=== PATIENT | male | born 1980 | race Caucasian/White ===

== ENCOUNTER 2024-09-22 09:07 | Emergency (ER) | payer OTHER, SELFPAY ==
--- NOTE | ~2024-09-22 | XR_ITS ---
HISTORY: R. foot injury with bruising COMPARISON: None TECHNIQUE: 3 views of the right were performed. FINDINGS: No acute fracture or dislocation is appreciated. No significant degenerative disease is noted. The base of the fifth metatarsal is intact. No calcaneal spur is noted. No significant soft tissue swelling is present. IMPRESSION: No acute fracture or dislocation, as detailed above. Reviewed, dictated and finalized at location A.
[2024-09-22 09:18] VITALS: BP 124/82; PULSE 85; RESP 18; TEMP 36.8; O2SAT 100
[2024-09-22 09:56] VITALS: BP 127/75; PULSE 69; RESP 16; TEMP 36.6; O2SAT 97
--- OUTSIDE RECORDS SUMMARY | 2024-09-22 10:23 | XMS_ITS | Encounter Summary ---
Author Organization 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
--- OUTSIDE RECORDS SUMMARY | 2024-09-22 10:23 | XMS_ITS | Continuity of Care Document ---
Author Name [facility] Organization [facility] Care Team Providers Care Investigator Vice Name Role Phone [facility] Unavailable Unavailable Problems Combined list of problems from Department of Defense and Veterans Affairs facilities. It does not include entries that were removed or entered in error. Problem Status Onset Date Problem Type Date of Resolution Comments Source Hyperlipidemia Active 05/28/20 24 Diagnosis [facility] Folliculitis Active 04/30/20 24 Diagnosis 5C-375 [facility] Obstructive sleep apnea syndrome2 Active 06/07/20 23 Condition Outside Source Comment: Last Assessment & Plan: The patient continues to benefit from the auto titrating CPAP unit with an auto titrating range of 6-10 cm water pressure for ongoing symptoms of MYESHA. His DME supplier is [employer]. Phone # . He will follow up here annually. -[facility] Gastroesophageal reflux disease without esophagitis Active 04/13/20 16 Condition [facility]th [facility] Adult atopic eczema Active Condition [facility] Bilateral plantar fasciitis Active Condition [facility] Cervical radiculopathy Active Condition [facility] Chronic post-traumatic stress disorder following combat Active Condition [facility] Difficulty hearing Active Condition [facility] Exposure to potentially hazardous substance ([facility] [id number]) Active Condition Sep 18 5 Entered By: SIMEON SPRINGER Comment: Entered automatically through JACE Problem List documentation program ATILIO MILLER [facility] Family history of cancer of colon Active Condition [facility] Family history: Myocardial infarction at less than 60 Active Condition [facility] Gastroesophageal reflux disease without esophagitis Active Condition . [facility] Hyperlipidemia Active Condition . [facility] Hypogonadism Active Condition [facility] Low back pain Active Condition . [facility] Obstructive sleep apnea Active Condition . [facility] Primary hypertension Active Condition [facility] Tinnitus Active Condition . [facility] Allergic rhinitis Active Condition 0055 C[facility] Anxiety disorder, unspecified Active Condition 0055C-[facility]th [facility] Calcaneal spur of right foot Active Condition 0055C[facility] Carotid artery stenosis Active Condition 0055C[facility] Cervical spondylosis Active Condition 0055A-[facility]th [facility] Cervicalgia Active Condition 0055C-[facility] Coronary artery stenosis Active Condition 0055C[facility] Decreased hearing Active Condition 0055 C[facility] Degenerative disc disease Active Condition 00[facility] Erectile dysfunction Active Condition 00[facility] Essential hypertension Active Condition 00[facility] Headache associated with sexual activity1 Active Condition Outside Source Comment: No evidence of migraine component. also pt just quit tobacco and that may contribute. check MRI and Lyme for completeness. w labs for PHA including lipids as pt tends to run high 5C-[facility] Lumbar spondylosis Active Condition 005 5A-[facility]th [facility] Mild recurrent major depression Active Condition 0055C-37 5th [facility] Major depressive disorder, recurrent, mild Active Condition 0055C-375 th [facility] Pain in right wrist Active Condition 00 55C-[facility] Plantar fasciitis of both feet Active Condition 00[facility] Post-traumatic stress disorder, unspecified Active Condition [facility] Vesicular eczema Active Condition 0055C -[facility] Diagnosis: ICD-10-CM F43.23 Adjustment disorder with mixed anxiety and depressed mood Active Diagnosis [facility] Diagnosis: ICD-10-CM Z71.89 Other specified counseling Active Diagnosis [facility] Diagnosis: ICD-10-CM G47.33 Obstructive sleep apnea (adult) (pediatric) Active Diagnosis [facility] Diagnosis: ICD-10-CM Z00.01 Encounter for general adult medical exam w abnormal findings Active Diagnosis [facility] Medications Combined list of outpatient medications from Department of Defense and Veterans Affairs facilities.Medications provided include 1) outpatient medications from the last 15 months, and 2) patient-reported medications. Medication Details Route Status Patient Instructions Prescription Expires Prescription Number Last Dispense Date Ordering Provider Order Date Order Qty Source ALBUTEROL SO4 90MCG/ACTUA T (CFC-F) INHL,ORAL,8 .5GM INHALE 1 PUFF BY ORAL INHALATI ON FOUR TIMES A DAY NEEDED SHAKE WELL. RINSE MOUTHPIE CE FREQUENT LY TO PREVENT CLOGGING . RESPIR ATORY (INHAL ATION) ACTIVE 09/17/2025 [id number] 5 RA AUDREY WHITTEN 2024 2 [facility] amoxicillin 500 mg oral capsule 2 cap(s), Oral, TID, X 5 days, # 30 cap(s), 0 total refill(s ), Acute, 10/31/23 8:23:00 AM CDT, Pharmacy : [facility] , Respirat ory, other Oral (given by mouth) Complet ed 10/31/2023 4 2023 30.0 0055C-3 [facility] [place] amoxicillin -clavulanat e 875 mg-125 mg oral tablet 20 EA, 0 Refill(s ), TAKE 1 TABLET BY MOUTH TWICE DAILY FOR 10 DAYS, 0 total refill(s ), Soft Stop Complet ed 10/26/20232023 0055C-3 75th [facility] [place] aspirin 81 mg oral tablet, chewable 1 tab(s), Oral, Daily, # 90 tab(s), 3 total refill(s ), Garth mnjulita, Pharmacy : [facility] Oral (given by mouth) Ordered 5 2023 90.0 0055C-3 75th [facility] [place] ASPIRIN 81MG TAB,CHEWABL E CHEW AND SWALLOW ONE TABLET BY MOUTH ONCE A DAY FOR CARDIOVA SCULAR DISEASE (TAKE WITH FOOD) ORAL ACTIVE 09/17/2025 [id number] 5 RA AUDREY WHITTEN 2024 90 [facility] azithromyci n 250 mg oral tablet See instruct ions, Take 2 tablets by mouth today then 1 tablet by mouth daily for 4 days., # 6 tab(s), 0 total refill(s ), Acute, 10/31/23 12:00:00 AM CDT, Pharmacy : [facility] , Respirat ory, other Complet ed 10/31/2023 4 2023 6.0 0055C-3 75th [facility] buPROPion 150 mg/24 hours (XL) oral tablet, extended release 1 tab(s), Oral, every 24 hr, Take with Lexapro 20mg for Anxiety, # 90 tab(s), 3 total refill(s ), Maintena [facility], Pharmacy : [facility] Oral (given by mouth) Discont inued 10/26/2023 3 2023 90.0 0055C-3 75th [facility] CHOLECALCIF JAIRO 50MCG (2,000UNIT) TAB TAKE ONE TABLET BY MOUTH ONCE A DAY ORAL ACTIVE 09/18/2025 [id number] 5 RA AUDREY WHITTEN 2024 100 [facility] clobetasol 0.05% topical cream 1 appl(s), Topical, BID, # 30 g, 1 total refill(s ), [facility], Pharmacy : [facility] Topica l (on the skin) Ordered 4 2023 30.0 0055C-3 75th [facility] CLOBETASOL PROPIONATE 0.05% OINT,TOP APPLY SPARINGL Y TO AFFECTED AREA(S) TWICE A DAY FOR ATOPIC DERMATIT IS (EXTERNA L USE ONLY) TOPICA L ACTIVE 09/17/2025 [id number] 5 RA AUDREY WHITTEN 2024 60 [facility] Pito Crestor 20 mg oral tablet 1 tab(s), Oral, Daily, for choleste rol, # 90 tab(s), 3 total refill(s ), Maintena mne, Pharmacy : [facility] Oral (given by mouth) Discont inued 04/16/2024 4 2023 90.0 0055C-3 75th [facility] Crestor 40 mg oral tablet 1 tab(s), Oral, Daily, for choleste rol, # 90 tab(s), 3 total refill(s ), Maintena nce, Patient lost prescrip tion. Please re-presc cuco. Thank you!, Pharmacy : [facility] Oral (given by mouth) Ordered 5 2023 90.0 0055C-3 75th [facility] [place] Crestor 40 mg oral tablet 1 tab(s), Oral, Daily, for choleste rol, # 90 tab(s), 3 total refill(s ), Maintena nce, Pharmacy : [facility] Oral (given by mouth) Discont inued 05/28/2024 4 2023 90.0 0055C-[address] [place] [address] [place] diclofenac 1% topical gel See instruct ions, Apply 2 grams (upper extremit ies) or 4 grams (lower extremit ies) to affected area topicall y four times daily as needed for pain. Max total body dose of 32 grams per day, # 100 g, 0 total refill(s ), Maintena nce, Pharmacy : [facility] Complet ed 02/01/2024 3 2023 100.0 0055C-[address] [place] [address] escitalopra m 20 mg oral tablet 1 tab(s), Oral, Daily, # 90 tab(s), 3 total refill(s ), Acute, Pharmacy : [facility] Oral (given by mouth) Ordered 10/05/2024 4 2023 90.0 0055C-[address] [place] [address] [place] escitalopra m 20 mg oral tablet 90 tab(s), 0 Refill(s ), 0 total refill(s ), Soft Stop Discont inued 09/29/20232023 0055C-3 75th [facility] escitalopra m 20 mg tablet See dose instruct ions in comments , # 90 EA, 3 total refill(s ), Acute Discont inued 10/06/2023 3 2023 90.0 Ambulat ory Pharmac y ESCITALOPRA M OXALATE 20MG TAB TAKE ONE TABLET BY MOUTH ONCE A DAY ORAL ACTIVE 09/17/2025 [id number] 5 RA AUDREY WHITTEN 2024 90 [facility] fexofenadin e 180 mg oral tablet TAKE ONE TABLET BY MOUTH EVERY DAY, # 90 EA, 2 total refill(s ), Acute Discont inued 12/06/2022 2 2022 90.0 Ambulat ory Pharmac y fexofenadin e 180 mg tablet See dose instruct ions in comments , # 90 EA, 3 total refill(s ), Acute Discont inued 12/28/2022 3 2022 90.0 Ambulat ory Pharmac y lisinopril 10 mg oral tablet 1 tab(s), Oral, Daily, 90 tab(s), 0 Refill(s ), # 90 tab(s), 3 total refill(s ), Garth [facility], Pharmacy : [facility] Oral (given by mouth) Ordered 4 2023 90.0 0055C-3 75th [facility] lisinopril 10 mg oral tablet 90 tab(s), 0 Refill(s ), 0 total refill(s ), Soft Stop Discont inued 10/06/20232023 0055C-3 75th [facility] lisinopril 10 mg oral tablet TAKE ONE TABLET DAILY BY MOUTH, # 90 EA, 2 total refill(s ), Acute Discont inued 12/06/2022 3 2022 90.0 Ambulat ory Pharmac y lisinopril 10 mg tablet See Instruct ions, # 90 EA, 3 total refill(s ), Acute Complet ed 09/25/2023 4 2023 90.0 Ambulat ory Pharmac y LISINOPRIL 20MG TAB TAKE ONE-HALF TABLET BY MOUTH ONCE A DAY FOR HIGH BLOOD PRESSURE ORAL ACTIVE 09/17/2025 [id number] 5 RA AUDREY WHITTEN 2024 45 [facility] Pito loratadine 10 mg oral tablet 1 tab(s), Oral, Daily, PRN allergy symptoms , # 90 tab(s), 3 total refill(s ), [facility], Pharmacy : [facility] Oral (given by mouth) Discont inued 11/28/2023 4 2023 90.0 0055C-3 [facility] loratadine 10 mg oral tablet 1 tab(s), Oral, Daily, PRN allergy symptoms , # 90 tab(s), 3 total refill(s ), [facility], Pharmacy : [facility] Oral (given by mouth) Ordered 5 2023 90.0 0055C-3 75th [facility] [place] LORATADINE 10MG TAB TAKE ONE TABLET BY MOUTH ONCE A DAY FOR ALLERGIC RHINITIS ON EMPTY STOMACH ORAL ACTIVE 09/17/2025 [id number] 5 RA AUDREY WHITTEN 2024 90 [facility] mupirocin 2% topical ointment 15 g, 0 Refill(s ), APPLY GRAM TOPICALL Y TO THE AFFECTED AREA THREE TIMES DAILY FOR 7 DAYS, 0 total refill(s ), Soft Stop Discont inued 10/26/20232023 0055C-3 75th [facility] mupirocin 2% topical ointment 1 appl(s), Topical, TID, # 22 g, 0 total refill(s ), Acute, Pharmacy : [facility] Topica l (on the skin) Complet ed 05/08/2024 4 2023 22.0 0055C-[address] [place] [address] [place] naproxen 500 mg oral tablet naproxen 500 mg oral tablet Start Date: 06/09/20 Stop Date: 12/06/22 Status: Disconti govind Repeat number: 1 Discont inued 12/06/20222022 No Facilit y Access pantoprazol e 40 mg oral delayed release tablet 1 tab(s), Oral, Daily, # 90 tab(s), 3 total refill(s ), [facility], Pharmacy : [facility] Oral (given by mouth) Discont inued 12/06/2022 3 2022 90.0 0326C-8 [employer] pantoprazol e 40 mg oral delayed release tablet 90 tab(s), 0 Refill(s ), 0 total refill(s ), Soft Stop Cancele d 11/28/20232023 0055C[facility]3 [facility] pantoprazol e EC 40 mg tablet See dose instruct ions in comments , # 90 EA, 3 total refill(s ), Acute Complet ed 09/26/2023 3 2023 90.0 Ambulat ory Pharmac y PANTOPRAZOL E NA 40MG TAB,EC TAKE ONE TABLET BY MOUTH EVERY MORNING BEFORE A MEAL TAKE 30 MINUTES BEFORE MEAL(S) ORAL ACTIVE 09/17/2025 [id number] 5 RA AUDREY WHITTEN [address] [place] [address] [facility] Protonix 40 mg oral delayed release tablet 1 tab(s), Oral, Daily, Book appointm ent for renewal, # 90 tab(s), 0 total refill(s ), Hard Stop, Pharmacy : [facility] Oral (given by mouth) Complet ed 02/29/2024 4 2023 90.0 0055C-3 [facility] Protonix 40 mg oral delayed release tablet 1 tab(s), Oral, Daily, # 90 tab(s), 3 total refill(s ), Maintena nce, Pharmacy : [facility] Oral (given by mouth) Ordered 5 2023 90.0 0055C-[address] [place] [address] [place] ROSUVASTATI N CA 40MG TAB TAKE ONE TABLET BY MOUTH EVERY EVENING FOR HIGH CHOLESTE ROL ORAL ACTIVE 09/17/2025 [id number] 5 RA AUDREY WHITTEN [address] [place] [address] DIVISIO N zolpidem 10 mg oral tablet zolpidem 10 mg oral tablet Start Date: 10/21/20 Stop Date: 12/06/22 Status: Yari faust Repeat number: 1 Discont inued 12/06/20222022 No Facilit y Access Allergies, Adverse Reactions, Alerts Combined list of allergies from Department of Defense and Veterans Affairs facilities. It does not include entries that were removed or entered in error. Substance Category Reaction Severity Reaction type Status Date Reported Comments Source Pet Dander Allergy to substance Rash Mild Active [facility] Immun[facility] Combined list of available immunizations from the Department of Defense and Veterans Affairs facilities. 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 Systems Technology Instructor Status Comments Source influenza virus vaccine, inactivated 2022 ISIDRORTORRES LUDWIG Shoul mallory, left (delt oid) [id number] 150 [employer] complet ed influenza virus vaccine, inactivat ed 05/29/23 Given 5C-3 75th [facility] [place] INFLUENZA, UNSPECIFIED FORMULATION 2022 88 complet ed [facility] influenza, injectable, quadrivalent- pf 2021 [facility] [id number] 150 complet ed Result Comment: Route: Unknown Manufactu rer: SmithKlin e (SKB) 5C-[address] [place] [address] [place] typhoid Vi capsular polysaccharid e vac 2021 [facility] TT [id number] 101 complet ed Result Comment: Route: Unknown Manufactu rer: Sanofi Pasteur (PMC) 5C-[address] [place] [address] [place] COVID-19 (PFIZER), MRNA, LNP-S, PF, 30 MCG/0.3 ML DOSE 1 2021 208 complet ed [facility] COVID Vaccine Pfizer 2021 [facility] TT [id number] 208 complet ed Result Comment: Route: Unknown Manufactu rer: Pfizer, Inc (PFR) 5C-[address] [place] [address] [place] anthrax vaccine 2021 [facility] [id number] 24 complet ed Result Comment: Route: Unknown Manufactu rer: Emergent BioDefens e [employer] s [place] (MIP) 5C-[address] [place] [address] [place] tuberculin purified protein derivative 2020 [facility] TT [id number] 96 complet ed Result Comment: Route: Unknown Manufactu rer: OTH (PMC) 5C-[address] [place] [address] [place] influenza, injectable, quadrivalent 2020 [facility] TT [id number] 158 complet ed Result Comment: Route: Unknown Manufactu rer: Seqirus (SEQ) 0055C-3 [facility]th [facility] [place] COVID Vaccine Moderna 2020 [id number] 207 complet ed COVID Vaccine Moderna 08/20/20 Given [facility] COVID Vaccine Moderna 2020 [id number] 207 complet ed COVID Vaccine Moderna 07/23/20 Given [facility] anthrax vaccine 2019 [id number] 24 Emergent Bios[employer] complet ed anthrax vaccine 05/21/20 Given [facility] Barbadian Encephalitis IM 2019 [id number] 134 Valneva complet ed Barbadian Encephali tis IM 04/22/20 Given [facility] influenza, injectable, quadrivalent- pf 2019 [id number] 150 Se[employer]irus complet ed influenza , injectabl e, quadrival ent-pf 04/08/20 Given [facility] rabies vaccine, purified chick embryo 2019 [id number] 176 GlaxoSmithKli ne complet ed rabies vaccine, purified chick embryo 08/29/19 Given [facility] rabies vaccine, purified chick embryo 2019 [id number] 176 GlaxoSmithKli ne complet ed rabies vaccine, purified chick embryo 08/14/19 Given [facility] rabies vaccine, purified chick embryo 2019 [id number] 176 GlaxoSmithKli ne complet ed rabies vaccine, purified chick embryo 08/07/19 Given [facility] typhoid Vi capsular polysaccharid e vac 2018 [id number] 101 sanofi pasteur complet ed typhoid Vi capsular polysacch aride vac 06/11/19 Given [facility] Barbadian Encephalitis IM 2018 [id number] 134 Valneva complet ed [place] Encephali tis IM 05/08/19 Given [facility] anthrax vaccine 2018 [id number] 24 Emergent [employer] complet ed anthrax vaccine 05/08/19 Given [facility] Barbadian Encephalitis IM 2018 [id number] 134 Valneva complet ed Barb[place] Encephali tis IM 03/20/19 Given [facility] influenza, injectable, quadrivalent- pf 2018 [id number] 150 Seqirus complet ed influenza , injectabl e, quadrival ent-pf 03/13/19 Given [facility] tetanus-dipht h toxoids (Td) adult/adol 2018 [id number] 09 sanofi pasteur complet ed tetanus-d iphth toxoids (Td) adult/ado l 09/27/18 Given [facility] TD(ADULT) UNSPECIFIED FORMULATION 2018 139 complet ed [facility] influenza, injectable, quadrivalent- pf 2017 [id number] 150 Se[employer]irus complet ed influenza , injectabl e, quadrival ent-pf 04/23/18 Given [facility] meningococcal A,C,Y,W-135 (MCV4P) 2016 [id number] 114 sanofi pasteur complet ed meningoco ccal A,C,Y,W-1 35 (MCV4P) 05/22/17 Given [facility] typhoid Vi capsular polysaccharid e vac 2016 [id number] 101 sanofi pasteur complet ed typhoid Vi capsular polysacch aride vac 05/22/17 Given [facility] influenza, injectable, quadrivalent- pf 2016 [id number] 150 GlaxoSmithKli ne complet ed influenza , injectabl e, quadrival ent-pf 03/27/17 Given [facility] influenza, injectable, quadrivalent 2015 [id number] 158 [employer]ical comple t ed influenza , injectabl e, quadrival ent 03/29/16 Given [facility] influenza, seasonal, injectable-pf 2014 [id number] 140 complet ed influenza , seasonal, injectabl e-pf 04/20/15 Given [facility] influenza, seasonal, injectable 2013 [id number] 141 [employer] comple t ed influenza , seasonal, injectabl e 04/21/14 Given [facility] influenza, live, intranasal,qu adrivalent 2012 [id number] 149 [email or web address] comple t ed influenza , live, intranasa l,quadriv alent 03/26/13 Given [facility] influenza virus vaccine, live 2011 [id number] 111 Medimmune Inc comple t ed influenza virus vaccine, live 04/04/12 Given [facility] influenza virus vaccine, live 2010 [id number] 111 [employer] Inc comple t ed influenza virus vaccine, live 03/25/11 Given [facility] influenza virus vaccine, live 2009 [id number] 111 Med[employer] Inc comple t ed influenza virus vaccine, live 05/04/10 Given [facility] yellow fever vaccine 2009 [id number] 37 sanofi pasteur complet ed yellow fever vaccine 12/30/09 Given [facility] typhoid Vi capsular polysaccharid e vac 2009 [id number] 101 sanofi pasteur complet ed typhoid Vi capsular polysacch aride vac 12/28/09 Given [facility] anthrax vaccine 2009 [id number] 24 Emergent Biosolutions complet ed anthrax vaccine 12/28/09 [facility] Novel influenza-H1N 1-09, injectable 2008 [id number] 127 Novartis Pharmaceutica ls complet ed Novel influenza -[id number], injectabl e 06/09/09 [facility], live 2008 [id number] 111 Mediune [facility] comple t ed influenza virus vaccine, live 03/02/09 Given [facility] tetanus, diphtheria, acellular pertu is 2008 [id number] 115 sanofi pasteur complet ed tetanus, diphtheri a, acellular pertussis 12/26/08 Given [facility] meningococcal A,C,Y,W-135 (MCV4P) 2008 [id number] 114 sanofi pasteur complet ed meningoco ccal A,C,Y,W-1 35 (MCV4P) 12/26/08 Given [facility] anthrax vaccine 2008 [id number] 24 Emergent Bios[employer] complet ed anthrax vaccine 10/23/08 Given [facility] influenza virus vaccine, live 2007 [id number] 111 Medimmune Inc comple t ed influenza virus vaccine, live 04/23/08 Given [facility] anthrax vaccine 2007 [id number] 24 Emergent [employer] complet ed anthrax vaccine 10/24/07 Given [facility] typhoid Vi capsular polysaccharid e vac 2007 [id number] 101 sanofi pasteur complet ed typhoid Vi capsular polysacch aride vac 10/24/07 Given [facility] hepatitis B adult vaccine 2007 [id number] 43 GlaxoSmithKli ne complet ed hepatitis B adult vaccine 08/21/07 Given [facility] HepB, Adult 2007 [facility] TT [id number] 3AA 43 complet ed Result Comment: Route: Unknown Manufactu rer: SmithKlin e (SKB) 0055C-3 [facility] [place] influenza virus vaccine, live 2006 [id number] 111 Medimmune Inc comple t ed influenza virus vaccine, live 05/31/07 Given [facility] hepatitis B adult vaccine 2006 [id number] 3AA 43 GlaxoSmithKli ne complet ed hepatitis B adult vaccine 03/13/07 Given [facility] HepB, Adult 2006 LIBERTYRBENNE TT [id number] 3AA 43 complet ed Result Comment: Route: Unknown Manufactu rer: SmithKlin e (SKB) 0055C-3 [facility] [place] hepatitis B adult vaccine 2006 [id number] 43 GlaxoSmithKli ne complet ed hepatitis B adult vaccine 01/24/07 Given [facility] HepB, Adult 2006 LIBERTYRBENNE TT [id number] 3AA 43 complet ed Result Comment: Route: Unknown Manufactu rer: SmithKlin e (SKB) 0055C-3 [facility] [place] anthrax vaccine 2006 [id number] 24 Emergent [employer] complet ed anthrax vaccine 10/03/06 Given [facility] influenza virus vaccine, live 2005 [id number] 111 Medimmune Inc comple t ed influenza virus vaccine, live 03/22/06 Given [facility] typhoid Vi capsular polysaccharid e vac 2005 [id number] 101 sanofi pasteur complet ed typhoid Vi capsular polysacch aride vac 10/17/05 Given [facility] influenza virus vaccine,split 2004 [id number] 15 sanofi pasteur complet ed influenza virus vaccine,s plit 06/01/05 Given [facility] influenza virus vaccine, live 2004 [id number] 111 Medimmune Inc comple t ed influenza virus vaccine, live 07/26/04 Given [facility] meningococcal polysaccharid e (MPSV4) 2003 [id number] 32 sanofi pasteur complet ed meningoco ccal polysacch aride (MPSV4) 12/30/03 Given [facility] typhoid vaccine, parenteral 2003 [id number] 41 sanofi pasteur complet ed typhoid vaccine, parentera l 11/13/03 Given [facility] anthrax vaccine 2003 [id number] 24 Emergent Biosolutions complet ed anthrax vaccine 11/13/03 Given [facility] anthrax vaccine 2002 [id number] 24 Emergent [employer] complet ed anthrax vaccine 04/22/03 Given [facility] influenza virus vaccine, whole virus 2002 [id number] [employer]i pasteur complet ed influenza virus vaccine, whole virus 04/22/03 Given [facility] anthrax vaccine 2002 [id number] [employer] complet ed anthrax vaccine 11/11/02 Given [facility] anthrax vaccine 2002 [id number] [employer] complet ed anthrax vaccine 10/22/02 Given [facility] vaccinia (smallpox) vaccine 2002 [id number] [employer] complet ed vaccinia (smallpox ) vaccine 10/04/02 Given [facility] anthrax vaccine 2002 [id number] [employer] complet ed anthrax vaccine 10/04/02 Given [facility] tuberculin purified protein derivative 2001 [id number] san[employer]i pasteur complet ed tuberculi n purified protein derivativ e 04/16/02 Given [facility] influenza virus vaccine, whole virus 2001 [id number] 16 [employer]i pasteur complet ed influenza virus vaccine, whole virus 04/16/02 Given [facility] typhoid vaccine, parenteral 2001 [id number] [employer]i pasteur complet ed typhoid vaccine, parentera l 10/26/01 Given [facility] influenza virus vaccine, whole virus 2000 [id number] 16 [employer] pasteur complet ed influenza virus vaccine, whole virus 04/18/01 Given [facility] tuberculin purified protein derivative 2000 [id number] 96 [employer] pasteur complet ed tuberculi n purified protein derivativ e 04/16/01 Given [facility] influenza virus vaccine, whole virus 1999 [id number] 16 [facility] complet ed influenza virus vaccine, whole virus 06/01/00 Given [facility] tuberculin purified protein derivative 1999 [id number] 96 [employer]i pasteur complet ed tuberculi n purified protein derivativ e 03/07/00 Given [facility] yellow fever vaccine 1999 [id number] [facility] complet ed yellow fever vaccine 10/19/99 Given [facility] hepatitis A adult vaccine [id number] [facility] complet ed hepatitis A adult vaccine 09/28/99 Given [facility] typhoid vaccine, parenteral 1999 [id number] 41 [employer] pasteur complet ed typhoid vaccine, parentera l 09/28/99 Given [facility] influenza virus vaccine, whole virus 19981918 [id number] 16 [facility] complet ed influenza virus vaccine, whole virus 04/30/99 Given [facility] hepatitis A adult vaccine 1998 52 complet ed hepatitis A adult vaccine 01/01/99 Given [facility] poliovirus vaccine, live, oral 1998 02 complet ed polioviru s vaccine, live, oral 01/01/99 Given [facility] tuberculin purified protein derivative 1998 96 complet ed tuberculi n purified protein derivativ e 12/25/98 Given [facility] meningococcal polysaccharid e (MPSV4) 1998 32 complet ed meningoco ccal polysacch aride (MPSV4) 12/25/98 Given [facility] influenza virus vaccine, whole virus 1998 16 complet ed influenza virus vaccine, whole virus 12/25/98 Given [facility] tetanus-dipht h toxoids (Td) adult/adol 1998 09 complet ed tetanus-d iphth toxoids (Td) adult/ado l 12/25/98 Given [facility] Results Combined list of recent chemistry, hematology and other laboratory results from [facility], ranging from 15 months to all on record, depending upon the facility. Order Name Results Value Reference Range Date Interpretation Specimen Comments Source URINALYS IS W/ CX REFLEX (STL-PB) COLOR OF URINE Light-Ye llow 09/16 Specimen Type: URINE No comment entered. Ordering Provider: BRETT WHITTEN Report Released Date/Time: Sep 16, 2024 03:59 PM Reporting Lab: [facility] [id number] Performing Lab: [facility] [id number] [place] [address] DIVISION URINALYS IS W/ CX REFLEX (STL-PB) BILIRUBIN. TOTAL [PRESENCE] IN URINE BY TEST STRIP Negative mg/dL 09/16 Specimen Type: URINE No comment entered. Ordering Provider: BRETT WHITTEN Report Released Date/Time: Sep 16, 2024 03:59 PM Reporting Lab: [facility] [id number] Performing Lab: [facility] DIVISION URINALYS IS W/ CX REFLEX (STL-PB) PH OF URINE BY TEST STRIP 6.0 5.0 - 8.0 09/16 Specimen Type: URINE No comment entered. Ordering Provider: BRETT WHITTEN Report Released Date/Time: Sep 16, 2024 03:59 PM Reporting Lab: [facility] [place] [address] Performing Lab: [facility] URINALYS IS W/ CX REFLEX (STL-PB) APPEARANCE OF URINE Clear 09/16 Specimen Type: URINE No comment entered. Ordering Provider: BRETT WHITTEN Report Released Date/Time: Sep 16, 2024 03:59 PM Reporting Lab: [facility] [place] [address] Performing Lab: [facility] URINALYS IS W/ CX REFLEX (STL-PB) NITRITE [PRESENCE] IN URINE BY TEST STRIP Negative mg/dL 09/16 Specimen Type: URINE No comment entered. Ordering Provider: BRETT WHITTEN Report Released Date/Time: Sep 16, 2024 03:59 PM Reporting Lab: [facility] [place] [address] Performing Lab: [facility] DIVISION URINALYS IS W/ CX REFLEX (STL-PB) GLUCOSE [MASS/VOLU ME] IN URINE BY TEST STRIP Normalmg /dL 09/16 Specimen Type: URINE No comment entered. Ordering Provider: BRETT WHITTEN Report Released Date/Time: Sep 16, 2024 03:59 PM Reporting Lab: [facility] [place] [address] Performing Lab: [facility] DIVISION URINALYS IS W/ CX REFLEX (STL-PB) PROTEIN [MASS/VOLU ME] IN URINE BY TEST STRIP Negative mg/dL 09/16 Specimen Type: URINE No comment entered. Ordering Provider: BRETT WHITTEN Report Released Date/Time: Sep 16, 2024 03:59 PM Reporting Lab: [facility] [place] [address] Performing Lab: [facility] DIVISION URINALYS IS W/ CX REFLEX (STL-PB) URN.UROBIL INOGEN Normalmg /dL 09/16 Specimen Type: URINE No comment entered. Ordering Provider: BRETT WHITTEN Report Released Date/Time: Sep 16, 2024 03:59 PM Reporting Lab: [facility] [place] [address] Performing Lab: [facility] DIVISION URINALYS IS W/ CX REFLEX (STL-PB) HEMOGLOBIN [MASS/VOLU ME] IN URINE BY TEST STRIP Negative mg/dL 09/16 Specimen Type: URINE No comment entered. Ordering Provider: BRETT WHITTEN Report Released Date/Time: Sep 16, 2024 03:59 PM Reporting Lab: [facility] [place] [address] Performing Lab: [facility] DIVISION URINALYS IS W/ CX REFLEX (STL-PB) KETONES [MASS/VOLU ME] IN URINE BY TEST STRIP Tracemg/ dL 09/16 Specimen Type: URINE No comment entered. Ordering Provider: BRETT WHITTEN Report Released Date/Time: Sep 16, 2024 03:59 PM Reporting Lab: [facility] [place] [address] Performing Lab: [facility] DIVISION URINALYS IS W/ CX REFLEX (STL-PB) URN.LEUK.E ST. Negative mg/dL 09/16 Specimen Type: URINE No comment entered. Ordering Provider: BRETT WHITTEN Report Released Date/Time: Sep 16, 2024 03:59 PM Reporting Lab: [facility] [place] [address] Performing Lab: [facility] DIVISION URINALYS IS W/ CX REFLEX (STL-PB) SPECIFIC GRAVITY OF URINE 1.011 09/16 Specimen Type: URINE No comment entered. Ordering Provider: BRETT WHITTEN Report Released Date/Time: Sep 16, 2024 03:59 PM Reporting Lab: [facility] [place] [address] Performing Lab: [facility] DIVISION TSH W/ REFLEX FT4 (STL) THYROTROPI N [UNITS/VOL UME] IN SERUM OR PLASMA 0.980 u[IU]/mL 0.470 - 5.000 09/16 Specimen Type: PLASMA No comment entered. Ordering Provider: BRETT WHITTEN Report Released Date/Time: Sep 16, 2024 03:59 PM Reporting Lab: [facility] [place] [address] Performing Lab: [facility] DIVISION HGA1C HEMOGLOBIN A1C/HEMOGL OBIN.TOTAL IN BLOOD 5.3 4.0 - 6.0 09/16 Specimen Type: BLOOD No comment entered. Ordering Provider: BRETT WHITTEN Report Released Date/Time: Sep 16, 2024 03:59 PM Reporting Lab: [facility] [place] [address] Performing Lab: [facility] B12 COBALAMIN (VITAMIN B12) [MASS/VOLU ME] IN SERUM OR PLASMA 782 pg/mL 213 - 816 09/16 Specimen Type: SERUM Comment: The listed sex of this patient may not be a typical indication for this test. Therefore, reference ranges or interpretiv e criteria listed may not be valid. Clinical correlation suggested. Ordering Provider: BRETT WHITTEN Report Released Date/Time: Sep 16, 2024 03:59 PM Reporting Lab: [facility] [place] [address] Performing Lab: [facility] VITAMIN D, 25-HYDRO XY 25-HYDROXY VITAMIN D3 [MASS/VOLU ME] IN SERUM OR PLASMA 25.4 ng/mL 30 - 96 09/16 L Specimen Type: SERUM Comment: The listed sex of this patient may not be a typical indication for this test. Therefore, reference ranges or interpretiv e criteria listed may not be valid. Clinical correlation suggested. Ordering Provider: BRETT WHITTEN Report Released Date/Time: Sep 16, 2024 03:59 PM Reporting Lab: [facility] [place] [address] Performing Lab: [facility] DIVISION PROST. SPECIFIC AG.(PB-S TL) PROSTATE SPECIFIC AG [MASS/VOLU ME] IN SERUM OR PLASMA 0.570 ng/mL 0.000 - 4.000 03/17 /2025 Specimen Type: SERUM Comment: The listed sex of this patient may not be a typical indication for this test. Therefore, reference ranges or interpretiv e criteria listed may not be valid. Clinical correlation suggested. Ordering Provider: BRETT WHITTEN Report Released Date/Time: Sep 16, 2024 03:59 PM Reporting Lab: [facility] [place] [address] Performing Lab: [facility] LIPID PANEL (STL) CHOLESTERO L [MASS/VOLU ME] IN SERUM OR PLASMA 155 mg/dL 0 - 200 09/16 Specimen Type: PLASMA Comment: No hemolysis noted. Ordering Provider: BRETT WHITTEN Report Released Date/Time: Sep 16, 2024 03:59 PM Reporting Lab: [facility] [place] [address] Performing Lab: [facility] LIPID PANEL (STL) TRIGLYCERI DE [MASS/VOLU ME] IN SERUM OR PLASMA 100 mg/dL 0 - 150 09/16 Specimen Type: PLASMA Comment: No hemolysis noted. Ordering Provider: BRETT WHITTEN Report Released Date/Time: Sep 16, 2024 03:59 PM Reporting Lab: [facility] [place] [address] Performing Lab: [facility] LIPID PANEL (STL) CHOLESTERO L IN LDL [MASS/VOLU ME] IN SERUM OR PLASMA BY CALCULATIO N 83 mg/dL 09/16 Specimen Type: PLASMA Comment: No hemolysis noted. Ordering Provider: BRETT WHITTEN Report Released Date/Time: Sep 16, 2024 03:59 PM Reporting Lab: [facility] [place] [address] Performing Lab: [facility] DIVISION LIPID PANEL (STL) CHOLESTERO L IN HDL [MASS/VOLU ME] IN SERUM OR PLASMA 52 mg/dL 40 09/16 Specimen Type: PLASMA Comment: No hemolysis noted. Ordering Provider: BRETT WHITTEN Report Released Date/Time: Sep 16, 2024 03:59 PM Reporting Lab: [facility] [place] [address] Performing Lab: [facility] DIVISION CBC LEUKOCYTES [#/VOLUME] IN BLOOD BY AUTOMATED COUNT 11.3 10*3/uL 3.6 - 11.2 09/16 H Specimen Type: BLOOD No comment entered. Ordering Provider: BRETT WHITTEN Report Released Date/Time: Sep 16, 2024 03:59 PM Reporting Lab: [facility] [place] [address] Performing Lab: [facility] DIVISION CBC ERYTHROCYT ES [#/VOLUME] IN BLOOD BY AUTOMATED COUNT 4.97 10*6/uL 4.10 - 5.70 09/16 Specimen Type: BLOOD No comment entered. Ordering Provider: BRETT WHITTEN Report Released Date/Time: Sep 16, 2024 03:59 PM Reporting Lab: [facility] [place] [address] Performing Lab: [facility] DIVISION CBC HEMOGLOBIN [MASS/VOLU ME] IN BLOOD 13.1 g/dL 13.1 - 16.8 09/16 Specimen Type: BLOOD No comment entered. Ordering Provider: BRETT WHITTEN Report Released Date/Time: Sep 16, 2024 03:59 PM Reporting Lab: [facility] [place] [address] Performing Lab: [facility] DIVISION CBC HEMATOCRIT [VOLUME FRACTION] OF BLOOD 41.4 38.2 - 48.4 09/16 Specimen Type: BLOOD No comment entered. Ordering Provider: BRETT WHITTEN Report Released Date/Time: Sep 16, 2024 03:59 PM Reporting Lab: [facility] [place] [address] Performing Lab: [facility] DIVISION CBC MCV [ENTITIC VOLUME] BY AUTOMATED COUNT 83.3 fL 80.0 - 100.0 09/16 Specimen Type: BLOOD No comment entered. Ordering Provider: BRETT WHITTEN Report Released Date/Time: Sep 16, 2024 03:59 PM Reporting Lab: [facility] [place] [address] Performing Lab: [facility] DIVISION CBC MCH [ENTITIC MASS] BY AUTOMATED COUNT 26.4 pg 27.0 - 34.0 09/16 L Specimen Type: BLOOD No comment entered. Ordering Provider: BRETT WHITTEN Report Released Date/Time: Sep 16, 2024 03:59 PM Reporting Lab: [facility] [place] [address] Performing Lab: [facility] DIVISION CBC MCHC [MASS/VOLU ME] BY AUTOMATED COUNT 31.6 g/dL 33.0 - 36.0 09/16 L Specimen Type: BLOOD No comment entered. Ordering Provider: BRETT WHITTEN Report Released Date/Time: Sep 16, 2024 03:59 PM Reporting Lab: [facility] [place] [address] Performing Lab: [facility] DIVISION CBC PLATELETS [#/VOLUME] IN BLOOD BY AUTOMATED COUNT 340 10*3/uL 150 - 400 09/16 Specimen Type: BLOOD No comment entered. Ordering Provider: BRETT WHITTEN Report Released Date/Time: Sep 16, 2024 03:59 PM Reporting Lab: [facility] [place] [address] Performing Lab: [facility] DIVISION CBC PLATELET MEAN VOLUME [ENTITIC VOLUME] IN BLOOD BY AUTOMATED COUNT 9.6 fL 7.5 - 11.2 09/16 Specimen Type: BLOOD No comment entered. Ordering Provider: BRETT WHITTEN Report Released Date/Time: Sep 16, 2024 03:59 PM Reporting Lab: [facility] [place] [address] Performing Lab: [facility] DIVISION CBC SEGMENTED NEUTROPHIL S/100 LEUKOCYTES IN BLOOD BY MANUAL COUNT 59 44 - 80 09/16 Specimen Type: BLOOD No comment entered. Ordering Provider: BRETT WHITTEN Report Released Date/Time: Sep 16, 2024 03:59 PM Reporting Lab: [facility] [place] [address] Performing Lab: [facility] DIVISION CBC MONOCYTES/ 100 LEUKOCYTES IN BLOOD BY AUTOMATED COUNT 6 4 - 8 09/16 Specimen Type: BLOOD No comment entered. Ordering Provider: BRETT WHITTEN Report Released Date/Time: Sep 16, 2024 03:59 PM Reporting Lab: [facility] [place] [address] Performing Lab: [facility] DIVISION CBC EOSINOPHIL S/100 LEUKOCYTES IN BLOOD BY MANUAL COUNT 3 0 - 8 09/16 Specimen Type: BLOOD No comment entered. Ordering Provider: BRETT WHITTEN Report Released Date/Time: Sep 16, 2024 03:59 PM Reporting Lab: [facility] [place] [address] Performing Lab: [facility] DIVISION CBC PLATELET ADEQUACY [PRESENCE] IN BLOOD BY LIGHT MICROSCOPY ADEQUATE 09/16 Specimen Type: BLOOD No comment entered. Ordering Provider: BRETT WHITTEN Report Released Date/Time: Sep 16, 2024 03:59 PM Reporting Lab: [facility] [place] [address] Performing Lab: [facility] DIVISION CBC ANISOCYTOS IS [PRESENCE] IN BLOOD BY LIGHT MICROSCOPY 1+ 09/16 Specimen Type: BLOOD No comment entered. Ordering Provider: BRETT WHITTEN Report Released Date/Time: Sep 16, 2024 03:59 PM Reporting Lab: [facility] [place] [address] Performing Lab: [facility] DIVISION CBC POLYCHROMA RONIT [PRESENCE] IN BLOOD BY LIGHT MICROSCOPY 1+ 09/16 Specimen Type: BLOOD No comment entered. Ordering Provider: BRETT WHITTEN Report Released Date/Time: Sep 16, 2024 03:59 PM Reporting Lab: [facility] [place] [id number] Performing Lab: [facility] DIVISION CBC HYPOCHROMI A [PRESENCE] IN BLOOD BY LIGHT MICROSCOPY 1+ 09/16 Specimen Type: BLOOD No comment entered. Ordering Provider: BRETT WHITTEN Report Released Date/Time: Sep 16, 2024 03:59 PM Reporting Lab: [facility] [place] [address] Performing Lab: [facility] DIVISION CBC ERYTHROCYT E DISTRIBUTI ON WIDTH [RATIO] BY AUTOMATED COUNT 12.6 11.8 - 15.1 09/16 Specimen Type: BLOOD No comment entered. Ordering Provider: BRETT WHITTEN Report Released Date/Time: Sep 16, 2024 03:59 PM Reporting Lab: [facility] [place] [address] Performing Lab: [facility] DIVISION CBC LYMPHOCYTE S/100 LEUKOCYTES IN BLOOD BY MANUAL COUNT 23 20 - 40 09/16 Specimen Type: BLOOD No comment entered. Ordering Provider: BRETT WHITTEN Report Released Date/Time: Sep 16, 2024 03:59 PM Reporting Lab: [facility] [place] [address] Performing Lab: [facility] DIVISION CBC VARIANT LYMPHOCYTE S/100 LEUKOCYTES IN BLOOD BY MANUAL COUNT 9 0 - 5 09/16 Specimen Type: BLOOD No comment entered. Ordering Provider: BRETT WHITTEN Report Released Date/Time: Sep 16, 2024 03:59 PM Reporting Lab: [facility] [id number] Performing Lab: [facility] DIVISION CBC PLATELETS RETICULATE D/100 PLATELETS IN BLOOD BY AUTOMATED COUNT 2.8 1.0 - 7.0 09/16 Specimen Type: BLOOD No comment entered. Ordering Provider: BRETT WHITTEN Report Released Date/Time: Sep 16, 2024 03:59 PM Reporting Lab: [facility] [place] [address] Performing Lab: [facility] DIVISION CBC NUCLEATED ERYTHROCYT ES/100 LEUKOCYTES [RATIO] IN BLOOD BY AUTOMATED COUNT 0 09/16 Specimen Type: BLOOD No comment entered. Ordering Provider: BRETT WHITTEN Report Released Date/Time: Sep 16, 2024 03:59 PM Reporting Lab: [facility] [place] [address] Performing Lab: [facility] DIVISION CBC PLATELETS [#/VOLUME] IN BLOOD BY ESTIMATE 1+ 09/16 Specimen Type: BLOOD No comment entered. Ordering Provider: BRETT WHITTEN Report Released Date/Time: Sep 16, 2024 03:59 PM Reporting Lab: [facility] [place] [address] Performing Lab: [facility] DIVISION CBC EOSINOPHIL S [#/VOLUME] IN BLOOD BY MANUAL COUNT 0.34 10*3/uL 0.00 - 0.60 09/16 Specimen Type: BLOOD No comment entered. Ordering Provider: BRETT WHITTEN Report Released Date/Time: Sep 16, 2024 03:59 PM Reporting Lab: [facility] [place] [address] Performing Lab: [facility] DIVISION CBC MONOCYTES [#/VOLUME] IN BLOOD BY MANUAL COUNT 0.68 10*3/uL 0.19 - 0.80 09/16 Specimen Type: BLOOD No comment entered. Ordering Provider: BRETT WHITTEN Report Released Date/Time: Sep 16, 2024 03:59 PM Reporting Lab: [facility] [place] [address] Performing Lab: [facility] DIVISION CBC LYMPHOCYTE S [#/VOLUME] IN BLOOD BY MANUAL COUNT 3.62 10*3/uL 0.77 - 4.50 09/16 Specimen Type: BLOOD No comment entered. Ordering Provider: BRETT WHITTEN Report Released Date/Time: Sep 16, 2024 03:59 PM Reporting Lab: [facility] [place] [address] Performing Lab: [facility] DIVISION CBC NEUTROPHIL S [#/VOLUME] IN BLOOD BY MANUAL COUNT 6.67 10*3/uL 2.10 - 8.00 09/16 Specimen Type: BLOOD No comment entered. Ordering Provider: BRETT WHITTEN Report Released Date/Time: Sep 16, 2024 03:59 PM Reporting Lab: [facility] [place] [address] Performing Lab: [facility] DIVISION COMPREHE NSIVE METABOLI C PANEL CREATININE [MASS/VOLU ME] IN SERUM OR PLASMA 0.80 mg/dL 0.70 - 1.30 09/16 Specimen Type: PLASMA Comment: No hemolysis noted. Ordering Provider: BRETT WHITTEN Report Released Date/Time: Sep 16, 2024 03:59 PM Reporting Lab: [facility] [place] [address] Performing Lab: [facility] DIVISION COMPREHE NSIVE METABOLI C PANEL UREA NITROGEN [MASS/VOLU ME] IN SERUM OR PLASMA 5.8 mg/dL 9.0 - 25.0 09/16 L Specimen Type: PLASMA Comment: No hemolysis noted. Ordering Provider: BRETT WHITTEN Report Released Date/Time: Sep 16, 2024 03:59 PM Reporting Lab: [facility] [place] [address] Performing Lab: [facility] DIVISION COMPREHE NSIVE METABOLI C PANEL GLUCOSE [MASS/VOLU ME] IN SERUM OR PLASMA 87 mg/dL 72 - 99 09/16 Specimen Type: PLASMA Comment: No hemolysis noted. Ordering Provider: BRETT WHITTEN Report Released Date/Time: Sep 16, 2024 03:59 PM Reporting Lab: [facility] [place] [address] Performing Lab: [facility] DIVISION COMPREHE NSIVE METABOLI C PANEL SODIUM [MOLES/VOL UME] IN SERUM OR PLASMA 139 meq/L 136 - 145 09/16 Specimen Type: PLASMA Comment: No hemolysis noted. Ordering Provider: BRETT WHITTEN Report Released Date/Time: Sep 16, 2024 03:59 PM Reporting Lab: [facility] [place] [address] Performing Lab: [facility] DIVISION COMPREHE NSIVE METABOLI C PANEL POTASSIUM [MOLES/VOL UME] IN SERUM OR PLASMA 3.7 meq/L 3.5 - 5.0 09/16 Specimen Type: PLASMA Comment: No hemolysis noted. Ordering Provider: BRETT WHITTEN Report Released Date/Time: Sep 16, 2024 03:59 PM Reporting Lab: [facility] [place] [address] Performing Lab: [facility] DIVISION COMPREHE NSIVE METABOLI C PANEL CHLORIDE [MOLES/VOL UME] IN SERUM OR PLASMA 105 meq/L 98 - 107 09/16 Specimen Type: PLASMA Comment: No hemolysis noted. Ordering Provider: BRETT WHITTEN Report Released Date/Time: Sep 16, 2024 03:59 PM Reporting Lab: [facility] [place] [address] Performing Lab: [facility] DIVISION COMPREHE NSIVE METABOLI C PANEL CARBON DIOXIDE, TOTAL [MOLES/VOL UME] IN SERUM OR PLASMA 23 meq/L 22 - 31 09/16 Specimen Type: PLASMA Comment: No hemolysis noted. Ordering Provider: BRETT WHITTEN Report Released Date/Time: Sep 16, 2024 03:59 PM Reporting Lab: [facility] [facility] [place] [address] Performing Lab: [facility] DIVISION COMPREHE NSIVE METABOLI C PANEL CALCIUM [MASS/VOLU ME] IN SERUM OR PLASMA 9.4 mg/dL 8.4 - 10.4 09/16 Specimen Type: PLASMA Comment: No hemolysis noted. Ordering Provider: BRETT WHITTEN Report Released Date/Time: Sep 16, 2024 03:59 PM Reporting Lab: [facility] [place] [address] Performing Lab: [facility] DIVISION COMPREHE NSIVE METABOLI C PANEL PROTEIN [MASS/VOLU ME] IN SERUM OR PLASMA 7.6 g/dL 6.0 - 8.6 09/16 Specimen Type: PLASMA Comment: No hemolysis noted. Ordering Provider: BRETT WHITTEN Report Released Date/Time: Sep 16, 2024 03:59 PM Reporting Lab: [facility] [place] [address] Performing Lab: [facility] DIVISION COMPREHE NSIVE METABOLI C PANEL ALBUMIN [MASS/VOLU ME] IN SERUM OR PLASMA 4.4 g/dL 3.4 - 5.0 09/16 Specimen Type: PLASMA Comment: No hemolysis noted. Ordering Provider: BRETT WHITTEN Report Released Date/Time: Sep 16, 2024 03:59 PM Reporting Lab: [facility] [place] [address] Performing Lab: [facility] DIVISION COMPREHE NSIVE METABOLI C PANEL BILIRUBIN. TOTAL [MASS/VOLU ME] IN SERUM OR PLASMA 1.0 mg/dL 0.2 - 1.2 09/16 Specimen Type: PLASMA Comment: No hemolysis noted. Ordering Provider: BRETT WHITTEN Report Released Date/Time: Sep 16, 2024 03:59 PM Reporting Lab: [facility]1 [place] [address] Performing Lab: [facility] DIVISION COMPREHE NSIVE METABOLI C PANEL ALKALINE PHOSPHATAS E [ENZYMATIC ACTIVITY/V OLUME] IN SERUM OR PLASMA 65 U/L 40 - 150 09/16 Specimen Type: PLASMA Comment: No hemolysis noted. Ordering Provider: BRETT WHITTEN Report Released Date/Time: Sep 16, 2024 03:59 PM Reporting Lab: [facility] [place] [address] Performing Lab: [facility] DIVISION COMPREHE NSIVE METABOLI C PANEL ASPARTATE AMINOTRANS FERASE [ENZYMATIC ACTIVITY/V OLUME] IN SERUM OR PLASMA 42 U/L 5 - 34 09/16 H Specimen Type: PLASMA Comment: No hemolysis noted. Ordering Provider: BRETT WHITTEN Report Released Date/Time: Sep 16, 2024 03:59 PM Reporting Lab: [facility] [place] [address] Performing Lab: [facility] DIVISION COMPREHE NSIVE METABOLI C PANEL ALANINE AMINOTRANS FERASE [ENZYMATIC ACTIVITY/V OLUME] IN SERUM OR PLASMA 30 U/L 8 - 40 09/16 Specimen Type: PLASMA Comment: No hemolysis noted. Ordering Provider: BRETT WHITTEN Report Released Date/Time: Sep 16, 2024 03:59 PM Reporting Lab: [facility] [place] [address] Performing Lab: [facility] DIVISION COMPREHE NSIVE METABOLI C PANEL GLOMERULAR FILTRATION RATE/1.73 SQ M.PREDICTE D [VOLUME RATE/AREA] IN SERUM, PLASMA OR BLOOD BY CREATININE -BASED FORMULA (CKD-EPI 2020) 111.92 60 09/16 Specimen Type: PLASMA Comment: No hemolysis noted. Ordering Provider: BRETT WHITTEN Report Released Date/Time: Sep 16, 2024 03:59 PM Reporting Lab: [facility]1 [facility] [id number] Performing Lab: [facility] [id number] [facility] Chemistr y Albumin 4.40 g/dL 3.50 - 5.20 04/01 N [id number] th [facility] Chemist[facility] y Alk Phos 68 U/L 40 - 150 04/01 N [id number] [facility] Chem[facility] ALT 21 U/L 5 - 55 04/01 N [id number] [facility] Chemist[facility] AST 23 U/L 5 - 34 04/01 N [id number] [facility] Sodium 138 mmol/L 136 - 145 04/01 N [id number] [facility] Chemist[facility] y Potassium Lvl 3.7 mmol/L 3.5 - 5.1 04/01 N [id number] [facility] Chem[facility] Protein Total 7.7 g/dL 6.4 - 8.3 04/01 N [id number] th [facility] Chemist[facility] y Chloride 104 mmol/L 98 - 107 04/01 N [id number] [facility] Chemist[facility] y BUN/Creat Ratio 9 mg/dL 12 - 20 04/01 L [id number] th [facility] Chemist[facility] y Calcium 9.6 mg/dL 8.4 - 10.2 04/01 N [id number] [facility] Creatinine Level 1.10 mg/dL 0.72 - 1.25 04/01 N [id number] th [facility] Chemist[facility] y AGAP 10.00 0.00 - 15.00 04/01 N [id number] [facility] Chem[facility] Glucose Lvl 83 mg/dL 74 - 99 04/01 N [id number] th [facility] Chemist[facility] y CO2 24 mmol/L 22 - 29 04/01 N [id number] th [facility] Chemist[facility] y Bilirubin Total 0.8 mg/dL 0.2 - 1.2 04/01 N [facility] Chem[facility] BUN 10 mg/dL 8 - 26 04/01 N [facility] Chemist[facility] Triglyceri nathan 93 mg/dL 7 - 149 04/01 N Interpretiv e Data: AGES 0-9: Desirable: < 75 mg/dL Borderline High: 75-99 mg/dL High: >/= 100 mg/dL AGES 10-19: Desirable: < 90 mg/dL Borderline High: 90-129 mg/dL High: >/= 130 mg/dL ADULTS: Desirable: < 150 mg/dL Borderline High: 150-199 mg/dL High: >/= 240 mg/dL Very High: >/= 500 mg/dL [facility] Chemist[facility] y LDL/HDL 2 04/01 [facility] Chemist[facility] Chol/HDL 3 mg/dL 04/01 [facility] Chemist[facility] y Cholestero l Total 177 mg/dL 04/01 N Interpretiv e Data: According to the [place] [employer] : AGES 0-19: Desirable: < 170 mg/dL Borderline High: 170-199 mg/dL High Blood Cholesterol : >/= 200 mg/dL ADULTS: Desirable < 200 mg/dL Borderline High: 200-239 mg/dL High Blood Cholesterol : >/= 240 mg/dL [facility] Chem[facility] y HDL Cholestero l 60 mg/dL 40 - 59 04/01 H Interpretiv e Data: HDL (HIGH DENSITY LIPOPROTEIN ): ADULTS: Low: < 40 mg/dL High: >/= 60 mg/dL AGES 0 -19: Low: < 40 mg/dL Borderline Low: 40 - 45 mg/dL Acceptable: > 45 mg/dL [facility] Chem[facility] LDL 102 mg/dL 100 - 130 04/01 N Interpretiv e Data: AGES 0-19: Desirable: < 110 mg/dL Borderline High: 110-129 mg/dL High: >/= 130 mg/dL ADULTS: Desirable: <100 mg/dL Near/above optimal: 100-130 mg/dL Borderline High: 131-159 mg/dL High: 160-189 mg/dL Very High: 190 mg/dL [facility] Chemist[facility] y eGFR CKD EPI 85 mL/min/1 .73_m2 04/01 Interpretiv e Data: Estimated Glomerular Filtration Rate (eGFR) calculated using the 2020 Chronic Kidney Disease-Epi demiology (CKD-EPI) Collaborati on creatinine equation; units of measure are mL/min/1.73 m2. Results are only valid for adults (>=18 years) whose serum creatinine is in steady state. eGFR calculation s are not valid for patients with acute kidney injury and for patients on dialysis. Creatinine- based estimates of kidney function may also be inaccurate in patients with reduced creatinine generation due to decreased muscle mass (e.g., malnutritio n, severe hypoalbumin emia, sarcopenia, chronic neuromuscul ar disease, amputations , severe heart failure or liver disease) and in patients with increased creatinine generation due to increased muscle mass (e.g., muscle builders, anabolic steroids) or increased dietary intake. CKD is diagnosed based on abnormaliti es of kidney structure or function, present for >3 months, with implication s for health and disease. CKD is classified and staged based on cause, eGFR and albuminuria (quantified as urine albumin to creatinine ratio). An eGFR >60 mL/min/1.73 m2 in the absence of increased urine albumin excretion or structural abnormaliti es does not CKD. eGFR provides only an estimate of measured GFR within +/- 30% for most patients. As mentioned, nutritional status and muscle mass, among many factors, may lead to inaccuracy in the estimate. Consider ordering the creatinine- cystatin C panel if better accuracy is needed for clinical decision-chiquis aguirre. eGFR (mL/min/1.7 3 m2) CKD stage Interpretat ion Normal 60-89 Mild decrease 45-59 Mild to moderate decrease 30-44 Moderate to severe decrease 15-29 Severe decrease <15 Kidney failure [facility] Chemist[facility] y eAvg Glucose 105 mg/dL 12/21 [facility] Chemist[facility] y Hemoglobin A1c 5.3 % 4.0 - 5.6 12/21 N Interpretiv e Data: Normal: 4.0 - 5.6% Increased Risk: 5.7 - 6.4% Diabetic Range: 6.5% For patients without diabetes, the normal range for the hemoglobin A1c test is between 4% and 5.6%. Hemoglobin A1c levels between 5.7% and 6.4% indicate increased risk of diabetes, and levels of 6.5% or higher indicate diabetes. Because studies have repeatedly shown that out-of-cont rol diabetes results in complicatio ns from the disease, the goal for people with diabetes is a hemoglobin A1c less than 7%. The higher the hemoglobin A1c, the higher the risks of developing complicatio ns related to diabetes. If confirmatio n is needed, consider recalling the patient and ordering Hemoglobin Electrophor esis. [facility] Chemistr y Testostero ne Total 396.0 ng/dL 249.0 - 836.0 12/21 N Interpretiv e Data: Testing methodology : Electrochem iluminescen ce immunoassay (ECLIA) 5600A-[place] FS[facility] EPILAB Chemistr y Cortisol AM.LC 12.6 ug/dL 12/21 Result Comment: Performed At: [address] [id number] [place] Real PhD Ph:[phone] [facility] Chemist[facility] y Prolactin 8.120 ng/mL 4.000 - 15.200 12/21 N [id number] Chemistr y HDL Cholestero l 70 mg/dL 40 - 59 12/21 H Interpretiv e Data: HDL (HIGH DENSITY LIPOPROTEIN ): ADULTS: Low: < 40 mg/dL High: >/= 60 mg/dL AGES 0 -19: Low: < 40 mg/dL Borderline Low: 40 - 45 mg/dL Acceptable: > 45 mg/dL [facility] Chemist[facility] y LDL 193 mg/dL 100 - 130 12/21 H Interpretiv e Data: AGES 0-19: Desirable: < 110 mg/dL Borderline High: 110-129 mg/dL High: >/= 130 mg/dL ADULTS: Desirable: <100 mg/dL Near/above optimal: 100-130 mg/dL Borderline High: 131-159 mg/dL High: 160-189 mg/dL Very High: 190 mg/dL [facility] Chemist[facility] y Chol/HDL 3 mg/dL 12/21 [facility] Chemist[facility] y Cholestero l Total 244 mg/dL 12/21 H Interpretiv e Data: According to the [place] [employer] : AGES 0-19: Desirable: < 170 mg/dL Borderline High: 170-199 mg/dL High Blood Cholesterol : >/= 200 mg/dL ADULTS: Desirable < 200 mg/dL Borderline High: 200-239 mg/dL High Blood Cholesterol : >/= 240 mg/dL [facility] Chemist[facility] y Triglyceri nathan 103 mg/dL 7 - 149 12/21 N Interpretiv e Data: AGES 0-9: Desirable: < 75 mg/dL Borderline High: 75-99 mg/dL High: >/= 100 mg/dL AGES 10-19: Desirable: < 90 mg/dL Borderline High: 90-129 mg/dL High: >/= 130 mg/dL ADULTS: Desirable: < 150 mg/dL Borderline High: 150-199 mg/dL High: >/= 240 mg/dL Very High: >/= 500 mg/dL [facility] Chemistr y LDL/HDL 3 12/21 [facility] Chemistr y eGFR CKD EPI 109 mL/min/1 .73_m2 10/05 Interpretiv e Data: Estimated Glomerular Filtration Rate (eGFR) calculated using the 2020 Chronic Kidney Disease-Epi demiology (CKD-EPI) Collaborati on creatinine equation; units of measure are mL/min/1.73 m2. Results are only valid for adults (>=18 years) whose serum creatinine is in steady state. eGFR calculation s are not valid for patients with acute kidney injury and for patients on dialysis. Creatinine- based estimates of kidney function may also be inaccurate in patients with reduced creatinine generation due to decreased muscle mass (e.g., malnutritio n, severe hypoalbumin emia, sarcopenia, chronic neuromuscul ar disease, amputations , severe heart failure or liver disease) and in patients with increased creatinine generation due to increased muscle mass (e.g., muscle builders, anabolic steroids) or increased dietary intake. CKD is diagnosed based on abnormaliti es of kidney structure or function, present for >3 months, with implication s for health and disease. CKD is classified and staged based on cause, eGFR and albuminuria (quantified as urine albumin to creatinine ratio). An eGFR >60 mL/min/1.73 m2 in the absence of increased urine albumin excretion or structural abnormaliti es does not CKD. eGFR provides only an estimate of measured GFR within +/- 30% for most patients. As mentioned, nutritional status and muscle mass, among many factors, may lead to inaccuracy in the estimate. Consider ordering the creatinine- cystatin C panel if better accuracy is needed for clinical decision-chiquis aguirre. eGFR (mL/min/1.7 3 m2) CKD stage Interpretat ion Normal 60-89 Mild decrease 45-59 Mild to moderate decrease 30-44 Moderate to severe decrease 15-29 Severe decrease <15 Kidney failure [facility] Hematolo [facility] Isabella Absolute 0.5 x10^3/mc L 0.2 - 0.8103 10/05 N [facility] Monocyte % Auto 7 % 1 - 12 10/05 N [facility] Hemat[facility] Lymph Absolute 2.1 x10^3/mc L 1.2 - 4.0103 10/05 N [facility] Hemat[facility] Neutro Absolute 4.0 x10^3/mc L 2.0 - 7.0103 10/05 N [facility] H[facility] Neutrophil % Auto 59.2 % 46.0 - 77.0 10/05 N [facility] H[facility] Baso Absolute 0.0 x10^3/mc L 0.0 - 0.1103 10/05 N [facility] Hemat[facility] Eos Absolute 0.2 x10^3/mc L 0.0 - 0.7103 10/05 N [facility] H[facility] Eosinophil % Auto 2 % 0 - 5 10/05 N [facility] Hemat[facility] Basophil % Auto 0.3 % 0.0 - 2.5 10/05 N [facility] Lymphocyte % Auto 30.9 % 20.0 - 40.0 10/05 N [facility] Chemistr y TSH 1.280 mIU/L 0.270 - 4.200 10/05 N Interpretiv e Data: Recommend: TPO/Thyrope roxidase Antibody when TSH result is > 4.2 uIU/mL [address] [place] [address] EPILAB Chemistr y Chol/HDL 4 mg/dL 10/05 [facility] Chemist[facility] y Cholestero l Total 272 mg/dL 10/05 H Interpretiv e Data: According to the [employer] [employer] : AGES 0-19: Desirable: < 170 mg/dL Borderline High: 170-199 mg/dL High Blood Cholesterol : >/= 200 mg/dL ADULTS: Desirable < 200 mg/dL Borderline High: 200-239 mg/dL High Blood Cholesterol : >/= 240 mg/dL [facility] Chemist[facility] y HDL Cholestero l 67 mg/dL 40 - 59 10/05 H Interpretiv e Data: HDL (HIGH DENSITY LIPOPROTEIN ): ADULTS: Low: < 40 mg/dL High: >/= 60 mg/dL AGES 0 -19: Low: < 40 mg/dL Borderline Low: 40 - 45 mg/dL Acceptable: > 45 mg/dL [facility] Chemist[facility] y LDL 191 mg/dL 100 - 130 10/05 H Interpretiv e Data: AGES 0-19: Desirable: < 110 mg/dL Borderline High: 110-129 mg/dL High: >/= 130 mg/dL ADULTS: Desirable: <100 mg/dL Near/above optimal: 100-130 mg/dL Borderline High: 131-159 mg/dL High: 160-189 mg/dL Very High: 190 mg/dL [facility] Chemist[facility] y LDL/HDL 3 10/05 [facility] Chemistr y Triglyceri nathan 92 mg/dL 7 - 149 10/05 N Interpretiv e Data: AGES 0-9: Desirable: < 75 mg/dL Borderline High: 75-99 mg/dL High: >/= 100 mg/dL AGES 10-19: Desirable: < 90 mg/dL Borderline High: 90-129 mg/dL High: >/= 130 mg/dL ADULTS: Desirable: < 150 mg/dL Borderline High: 150-199 mg/dL High: >/= 240 mg/dL Very High: >/= 500 mg/dL [facility] Chemist[facility] y Hemoglobin A1c 4.9 % 4.0 - 5.6 10/05 N Interpretiv e Data: Normal: 4.0 - 5.6% Increased Risk: 5.7 - 6.4% Diabetic Range: 6.5% For patients without diabetes, the normal range for the hemoglobin A1c test is between 4% and 5.6%. Hemoglobin A1c levels between 5.7% and 6.4% indicate increased risk of diabetes, and levels of 6.5% or higher indicate diabetes. Because studies have repeatedly shown that out-of-cont rol diabetes results in complicatio ns from the disease, the goal for people with diabetes is a hemoglobin A1c less than 7%. The higher the hemoglobin A1c, the higher the risks of developing complicatio ns related to diabetes. If confirmatio n is needed, consider recalling the patient and ordering Hemoglobin Electrophor esis. [facility] Chemistr y eAvg Glucose 94 mg/dL 10/05 [facility] H[facility] RBC 5.3 x10^6/mc L 4.0 - 5.6106 10/05 N [facility] H[facility] RDW 12.1 % 11.0 - 14.9 10/05 N [facility] H[facility] WBC 6.8 x10^3/mc L 4.0 - 11.0103 10/05 N [facility] Hematocrit 48 % 40 - 49 10/05 N [facility] Hemat[facility] Differenti al? Auto (10/06/23 9:06 AM) 10/05 N [facility] H[facility] MCH 30 pg 28 - 33 10/05 N [facility] H[facility] Hemoglobin 16.0 g/dL 13.0 - 16.3 10/05 N [facility] H[facility] MCHC 33.6 g/dL 33.0 - 36.5 10/05 N [facility] H[facility] MPV 11.0 fL 7.4 - 10.4 10/05 H [facility] H[facility] MCV 90 fL 80 - 97 10/05 N [facility] Hemat[facility] Platelets 265.0 x10^3/mc L 150.0 - 450.0103 10/05 N [facility] Chemistr y AGAP 10.00 0.00 - 15.00 10/05 N [facility] Chemistr y Albumin 4.20 g/dL 3.50 - 5.20 10/05 N [facility] Chemistr y Alk Phos 88 U/L 40 - 150 10/05 N [facility] Chemistr y ALT 28 U/L 5 - 55 10/05 N [facility] Chemistr y AST 21 U/L 5 - 34 10/05 N [facility] Chemistr y Bilirubin Total 0.4 mg/dL 0.2 - 1.2 10/05 N [facility] Chemistr y BUN 12 mg/dL 8 - 26 10/05 N [facility] Chemistr y Glucose Lvl 102 mg/dL 74 - 99 10/05 H [facility] Chemistr y Potassium Lvl 4.1 mmol/L 3.5 - 5.1 10/05 N [facility] Chemist[facility] y Sodium 139 mmol/L 136 - 145 10/05 N [facility] Chemist[facility] y Protein Total 7.9 g/dL 6.4 - 8.3 04/05 /2024 N [id number] [facility] Chemist[facility] y BUN/Creat Ratio 13 mg/dL 12 - 10/05 N [id number] [facility] Chemist[facility] y Calcium 9.8 mg/dL 8.4 - 10.2 10/05 N [id number] [facility] Chemistr y Chloride 105 mmol/L 98 - 107 10/05 N [id number] [facility] Chemist[facility] y CO2 24 mmol/L 22 - 29 10/05 N -375 [facility] Chemist[facility] y Creatinine Level 0.90 mg/dL 0.72 - 1.25 10/05 N -375 [facility] Chemist[facility] y Potassium Lvl 4.4 mmol/L 3.5 - 5.1 02/10 N [id number] [facility] Chemist[facility] y Sodium 140 mmol/L 136 - 145 02/10 N [id number] [facility] Chemist[facility] y Glucose Lvl 93 mg/dL 74 - 99 02/10 N [id number] [facility] Chemistr y Calcium 10.2 mg/dL 8.4 - 10.2 02/10 N [id number] [facility] Chemist[facility] y Chloride 102 mmol/L 98 - 107 02/10 N [id number] [facility] Chemist[facility] y CO2 29 mmol/L 22 - 29 02/10 N [id number] [facility] Chemistr y Creatinine Level 0.90 mg/dL 0.72 - 1.25 02/10 N [id number] [facility] Chemist[facility] y BUN/Creat Ratio 14 mg/dL 12 - 20 02/10 N [id number] [facility] Chemistr y AGAP 9.00 0.00 - 15.00 02/10 N [id number] [facility] Chemistr y BUN 13 mg/dL 8 - 02/10 N [id number] [facility] Chemistr y eGFR CKD EPI 109 mL/min/1 .73_m2 02/10 Interpretiv e Data: Estimated Glomerular Filtration Rate (eGFR) calculated using the 2020 Chronic Kidney Disease-Epi demiology (CKD-EPI) Collaborati on creatinine equation; units of measure are mL/min/1.73 m2. Results are only valid for adults (>=18 years) whose serum creatinine is in steady state. eGFR calculation s are not valid for patients with acute kidney injury and for patients on dialysis. Creatinine- based estimates of kidney function may also be inaccurate in patients with reduced creatinine generation due to decreased muscle mass (e.g., malnutritio n, severe hypoalbumin emia, sarcopenia, chronic neuromuscul ar disease, amputations , severe heart failure or liver disease) and in patients with increased creatinine generation due to increased muscle mass (e.g., muscle builders, anabolic steroids) or increased dietary intake. CKD is diagnosed based on abnormaliti es of kidney structure or function, present for >3 months, with implication s for health and disease. CKD is classified and staged based on cause, eGFR and albuminuria (quantified as urine albumin to creatinine ratio). An eGFR >60 mL/min/1.73 m2 in the absence of increased urine albumin excretion or structural abnormaliti es does not CKD. eGFR provides only an estimate of measured GFR within +/- 30% for most patients. As mentioned, nutritional status and muscle mass, among many factors, may lead to inaccuracy in the estimate. Consider ordering the creatinine- cystatin C panel if better accuracy is needed for clinical decision-chiquis aguirre. eGFR (mL/min/1.7 3 m2) CKD stage Interpretat ion Normal 60-89 Mild decrease 45-59 Mild to moderate decrease 30-44 Moderate to severe decrease 15-29 Severe decrease <15 Kidney failure [id number] Infect us Disease HIV-1/O/2 Non-Reac tive 18 (12/29/22 8:58 AM) 12/29 N Interpretiv e Data: INTERPRETAT ION: This method is a screening procedure for the detection of HIV p24 Antigen and Antibodies to HIV-1, including Group O, and/or HIV-2. NON-REACTIV E: HIV-1 antigen and HIV-1 / HIV-2 antibodies were not detected. No laboratory evidence of HIV infection. A negative test result does not exclude the possibility of exposure to or infection with HIV. HIV antibodies and/or p24 antigen may be undetectabl e in some stages of the infection and in some clinical conditions. If acute HIV infection is suspected, consider submitting another specimen to a reference laboratory for HIV-1 RNA. SCREEN REACTIVE - CONFIRMATIO N TO FOLLOW: Possible presence of HIV-1antibo dies, HIV-2 antibodies and/or HIV-1 p24 antigen. Specimen will reflex to the confirmatio n testing that fulfills the Center for Disease Control and Prevention' s HIV diagnostic algorithm. Refer to [facility] Lab Guide for additional information : [email or web address] x Testing performed by Ronny valentin [facility] Molecula r Infectio us Disease Influenza A PCR NEGATIVE 11/09 [id number] Molecula r Infectio us Disease Reason for Test? Screenin g (11/09/20 10:23 AM) 11/09 N 0203A-[facility]ie on B [facility] Molecula r Infectio us Disease RESP SYNCYTIAL VIRUS PCR NEGATIVE 11/09 [facility] Molecula r Infectio us Disease Influenza B PCR NEGATIVE 11[facility]09 [facility] SARS-CoV-2 PCR Negative *NA* (11/09/20 10:23 AM) 11/09 [facility] Vital Signs Combined list of inpatient and outpatient Vital Signs from Department of Defense and Veterans Affairs, ranging from 12 months to all on record, depending upon the facility. Vital Sign Value Date Comments Source SYSTOLIC BLOOD PRESSURE 136 09/17/19 25 14:25:23 [facility] DIASTOLIC BLOOD PRESSURE 77 025 14:25:23 [facility] PULSE OXIMETRY 97 09/16/2024 14:25:23 [facility] WEIGHT 257.2 09/16/2024 14:25:23 [facility] BMI 35 kg/m2 09/16/2024 14:25:23 [facility] PAIN 3 09/16/2024 14:25:23 [facility] HEIGHT 72 09/16/2024 14:25:23 [facility] TEMPERATURE 97.8 09/16/2024 [facility] PULSE 70 09/16/2024 14:25:23 [facility] RESPIRATION 18 09/16/2024 14:25:23 [facility] Temperature Temporal Artery 36.6 [facility] 12/07/2022 18:10:00 [id number] BP Site Right arm 06/19/2023 20:59:00 [id number] Blood Pressure Manual Automatic 06/19/2023 20:59:00 [id number] Temperature Oral 37 [facility] 06/19/2023 20:59:00 [id number] Respiratory Rate 18 br/min 06/19/2023 20:59:00 [id number] Mean Arterial Pressure, Calc 91 mm[Hg] 06/19/2023 20:59:00 [id number] Peripheral Pulse Rate 74 bpm 06/19/2023 20:59:00 [id number] Systolic Blood Pressure 118 mm[Hg] 06/19/20 20:59:00 [id number] Diastolic Blood Pressure 78 mm[Hg] 023 20:59:00 [id number] Respiratory Rate 18 br/min 10/26/2023 13:01:00 [id number] Peripheral Pulse Rate 85 bpm 10/26/2023 13:01:00 [id number] Mean Arterial Pressure, Calc 98 mm[Hg] 10/26/2023 13:01:00 [id number][facility] Blood Pressure Manual Automatic 10/26/2023 13:01:00 [id number] BP Site Left arm 10/26/2023 13:01:00 [id number] Temperature Oral 36.4 [facility] 10/26/2023 13:01:00 [id number][facility] Systolic Blood Pressure 122 mm[Hg] 10/26/19 13:01:00 [id number] Diastolic Blood Pressure 86 mm[Hg] 024 13:01:00 [id number] Mean Arterial Pressure, Calc 101 mm[Hg] 11/29/2023 15:38:00 [id number] Systolic Blood Pressure 130 mm[Hg] 11/29/19 24 15:38:00 [id number] Diastolic Blood Pressure 87 mm[Hg] 024 15:38:00 [id number] BP Site Left arm 11/29/2023 15:38:00 [id number] Temperature Oral 36.4 [facility] 11/29/2023 15:38:00 [facility] Respiratory Rate 18 br/min 11/29/2023 15:38:00 [facility] Peripheral Pulse Rate 80 bpm 11/29/2023 15:38:00 [facility] Blood Pressure Manual Automatic 11/29/2023 15:38:00 [facility] Respiratory Rate 16 br/min 02/02/2024 18:08:00 [facility] Temperature Oral 36.7 Aviva 02/02/2024 18:08:00 [facility] Mean Arterial Pressure, Calc 98 mm[Hg] 02/02/2024 18:08:00 [facility] Peripheral Pulse Rate 67 bpm 02/02/2024 18:08:00 [facility] BP Site Left arm 02/02/2024 18:08:00 [facility] Blood Pressure Manual Automatic 02/02/2024 18:08:00 [facility] Systolic Blood Pressure 122 mm[Hg] 02/02/20 18:08:00 [facility] Diastolic Blood Pressure 86 mm[Hg] 024 18:08:00 [facility] Temperature Tympanic 37 Aviva 02/08/2023 14:35:00 [facility] Systolic Blood Pressure 124 mm[Hg] 04/30/20 13:00:00 [facility] Diastolic Blood Pressure 67 mm[Hg] 024 13:00:00 [facility] Respiratory Rate 14 br/min 04/30/2024 13:00:00 [facility] Mean Arterial Pressure, Calc 86 mm[Hg] 04/30/2024 13:00:00 [facility] Peripheral Pulse Rate 65 bpm 04/30/2024 13:00:00 [facility] Blood Pressure Manual Automatic 04/30/2024 13:00:00 [facility] BP Site Right arm 04/30/2024 13:00:00 [facility] Temperature Oral 36.5 Aviva 04/30/2024 13:00:00 [facility] Respiratory Rate 16 br/min 12/14/2023 13:41:00 [facility] Temperature Oral 36.7 Aviva 12/14/2023 13:41:00 [facility] Peripheral Pulse Rate 69 bpm 12/14/2023 13:41:00 [facility] Mean Arterial Pressure, Calc 98 mm[Hg] 12/14/2023 13:41:00 [facility] BP Site Left arm 12/14/2023 13:41:00 [facility] Blood Pressure Manual Automatic 12/14/2023 13:41:00 [facility] Systolic Blood Pressure 123 mm[Hg] 12/14/19 13:41:00 [facility] Diastolic Blood Pressure 86 mm[Hg] 13:41:00 [facility] BP Site Left arm 01/15/2024 16:05:00 [facility] Blood Pressure Manual Automatic 01/15/2024 16:05:00 [facility] Mean Arterial Pressure, Calc 93 mm[Hg] 01/15/2024 16:05:00 [facility] Respiratory Rate 16 br/min 01/15/2024 16:05:00 [facility] Peripheral Pulse Rate 65 bpm 01/15/2024 16:05:00 [facility] Temperature Oral 36.8 Aviva 01/15/2024 16:05:00 [facility] Systolic Blood Pressure 116 mm[Hg] 01/15/20 24 16:05:00 [facility] Diastolic Blood Pressure 82 mm[Hg] 16:05:00 [facility] Blood Pressure Manual Automatic 01/10/2024 14:36:00 [facility] BP Site Left arm 01/10/2024 14:36:00 [facility] Systolic Blood Pressure 125 mm[Hg] 01/10/20 14:36:00 [facility] Diastolic Blood Pressure 87 mm[Hg] 024 14:36:00 [facility] Temperature Oral 36.6 Aviva 01/10/2024 14:36:00 [facility] Respiratory Rate 16 br/min 01/10/2024 14:36:00 [facility] Peripheral Pulse Rate 75 bpm 01/10/2024 14:36:00 [facility] Mean Arterial Pressure, Calc 100 mm[Hg] 01/10/2024 14:36:00 [facility] Systolic Blood Pressure 137 mm[Hg] 02/19/20 24 15:57:00 [facility] Diastolic Blood Pressure 89 mm[Hg] 024 15:57:00 [facility] Blood Pressure Manual Automatic 02/19/2024 15:57:00 [facility] BP Site Right arm 02/19/2024 15:57:00 [facility] Temperature Oral 36.5 Aviva 02/19/2024 15:57:00 [facility] Mean Arterial Pressure, Calc 105 mm[Hg] 02/19/2024 15:57:00 [facility] Respiratory Rate 16 br/min 02/19/2024 15:57:00 [facility] Peripheral Pulse Rate 61 bpm 02/19/2024 15:57:00 [facility] Peripheral Pulse Rate 73 bpm 09/29/2023 14:49:00 [facility] Mean Arterial Pressure, Calc 104 mm[Hg] 09/29/2023 14:49:00 [facility] Systolic Blood Pressure 131 mm[Hg] 09/29/19 14:49:00 [facility] Diastolic Blood Pressure 90 mm[Hg] 024 14:49:00 [facility] Respiratory Rate 16 br/min 09/29/2023 14:49:00 [facility] Blood Pressure Manual Automatic 09/29/2023 14:49:00 [facility] BP Site Left arm 09/29/2023 14:49:00 [facility] Temperature Oral 36.5 Aviva 09/29/2023 14:49:00 [facility] Encounters Combined list of: 1) Encounters from Department of Veterans Affairs facilities going backup to the last 18 months, not all VA inpatient encounters are included; 2) Encounters from the Department of Defense facilities going backup to 280 months. Location Location Details Encounter Type Encounter Number Reason For Visit Attending Provider ADM Date DC Date Status Disposition Source [facility] Outpatient Encounter [id number] 05/29 [facility] [id number] Follicu lar disorde r, unspeci fied MYESHA MENG 04/30 Discharge Disposition: Home or Self Care [facility] [place] [facility] Visit [id number] 05/24 Discharge Disposition: Home or Self Care [facility] [place] [facility] [id number] Hyperli pidemia , unspeci fied MYESHA MENG 05/28 Discharge Disposition: Home or Self Care [facility] Visit [id number] 08/11 Discharge Disposition: Home or Self Care [facility] Visit [id number] 08/20 Discharge Disposition: Home or Self Care [facility] Encounter [id number] 09/13 [facility] Outpatient Encounter [id number] RENETTATYRELLHandy HOOVER 09/16 [facility] OFFICE O/P [place] 60 MIN [id number] Diagnos is: ICD-10- CM Z00.01 Encount er for general adult medical exam w WICHO Schwab 09/16 [facility] POS AIRWAY PRESSURE CPAP [id number] Diagnos is: ICD-10- CM G47.33 Obstruc tive sleep apnea (adult) (pediat que) EMMANUEL RODRIGUEZ 09/17 [facility] OFF/OP EST OCTOBER X REQ PHY/QHP [id number] Diagnos is: ICD-10- CM 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 09/18 [facility] Outpatient Encounter [id number] RENETTA,EIL EEN 09/18 [facility] Outpatient Encounter [id number] RENETTA,EIL EEN 09/18 [facility] Procedures Combined list of: 1) Procedures from Department of Veterans Affairs facilities going back up to thelast 18 months, not all [place] non-surgical procedures are included; 2) All procedures from the Department of Defense facilities. Procedure Procedure Type Code Date Perfomer Comments Sourc e Simple repair of superficial wounds of scalp, neck, axillae, external genitalia, trunk and/or extremities (including hands and feet); 2.5 cm or le Simple repair of superficial wounds of scalp, neck, axillae, external genitalia, trunk and/or extremities (including hands and feet); 2.5 cm or less 01/07/2024 [facility] Needle insertion(s) without injection(s); 3 or more muscles Needle insertion(s) without injection(s); 3 or more muscles 01237 [facility] Needle insertion(s) without injection(s); 1 or 2 muscle(s) Needle insertion(s) without injection(s); 1 or 2 muscle(s) 81641 [facility] Application of a modality to one or more areas; vasopneumatic devices Application of a modality to one or more areas; vasopneumatic devices 08643 [facility] Social History Combined list of available smoking, tobacco, and other social history from Department of Defense and Veterans Affairs facilities. Social History Type Response Date Comment Sourc e Tobacco smoking status [place]-TOBACCO USE FORMER CIGARETTES 09/16/2024 [facility] History of tobacco use SC-TOBACCO NEVER USED OTHER TYPE 09/16/2024 [facility] Tobacco Former-cigarette user Cigarette use:. Former-other tobacco user (not cigarettes) Other Tobacco use:. Stopped tobacco use in 2018 [facility] Sexual Orientation [facility] Gender identity [facility] Sex Representation Male Unknow n Organization Assessment and Plan Combined list of future care activities from Department of Defense and Veterans Affairs facilities (e.g., assessment and plan notes, appointments, orders, and referrals). Additional future care activities may be listed in the Plan of Care section. Result Assessment and Plan Date Source Assessment and Plan Extracted from:Title : [facility] - Virtual Medication Refill Author: MYESHA BROOKS MD Date: 05/28/24 1. H yperlipidemia Administrative encounter On crestor 40mg (started on 20mg in December, increased to 40mg in April) Medication renewed, comments to pharmacy - pt lost medication Ordered: rosuvastatin(Crestor 40 mg oral tablet), 1 tab(s), Oral, Daily, for cholesterol, # 90 tab(s), 3 total refill(s), Maintenance, Patient lost prescription. Please re-prescribe. Thank you!, 1 tab(s) Oral Daily,Instr:for cholesterol, Pharmacy: [facility] [Not filled] AMD: UP IMR: WWQ //SIGNED// Capt Myesha Merida MD Flight Surgeon, Family Physician [address] [place] [facility], [place] Extracted from:Title: [facility] - Folliculitis Author: MYESHA BROOKS MD Date: 04/30/24 1. F olliculitis Acute, localized to right perioral cheek, x1 day Two pustules, surrounding erythema, and mild edema of cheek on exam - topical mupirocin TID for 1 week - wash area with warm water and soap twice daily - do not pick at or squeeze pustules - motrin/tylenol for pain and swelling PRN - f/u if symptoms spread/worsen, if infection tracks into mouth (do not expect this given localized nature of symptoms and early treatment) Orders: mupirocin topical(mupirocin 2% topical ointment), 1 appl(s), Topical, TID, # 22 g, 0 total refill(s), Acute, 1 appl(s) Topical TID, Pharmacy: [facility] [Not filled] Fitness: No restrictions. Duty: No restrictions. 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 Pt endorsed symptoms consistent with PTSD including: i ntrusive memories, nightmares, psychological distress and physiological reaction to trauma cues, avoidance of thoughts and feelings and flying on planes, d istorted thoughts that lead to blame self, persistent negative emotional state, h ypervigilance when flying, and concentration difficulties. 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 Pt currently has approximately 2 years of sobriety, attends AA meetings, has a sponsor, and is working 10 steps. Pt amenable to group CPT for trauma but currently unable to attend next groups beginning in December and December due to TDY and skill bridge schedule. Consulted with [facility] and pt was provided with an off-base referral for individual trauma directed treatment. [5] 1. P ost-traumatic stress disorder, unspecified Prognosis: Good Benefits, Risks, Alternatives Discussed: Yes Target Symptoms: Trauma Addendum by MYESHA BROOKS MD on April 23, 2024 10:58:32 CDT Aeromedical Provider Disposition Stamp Reviewed note. No change in aeromedical status. No new conditions requiring DNIF/DNIC or disqualification. Myesha Merida, , Mary IVAN, FS Flight Surgeon/Family Physician Extracted from:Title: [facility] - Virtual Medication Follow Up Author: MYESHA BROOKS MD Date: 04/16/24 1. C arotid artery stenosis *Virtual encounter* January carotid US: mild plaque in left ICA bulb Vascular referral placed in January - appointment this Rosuvastatin 20mg started in December. Pt doing well without side effects. 48% reduction in LDL since medication initiation. - increase rosuvastatin to 40mg daily to achieve goal > 50% LDL reduction for receivable manager protection of vessels and ASCVD risk reduction (okay to take two 20mg tabs for now, then fill 40mg prescription) - continue ASA 81mg daily - f/u with vascular as scheduled - f/u in clinic if any changes, medication concerns/side effects, or questions - pt agrees with plan, no further questions today Of note, upcoming jail but will be in the area until Jul 2024 2. C oronary artery stenosis January coronary artery c alcium score: 245 ( Mild disease highly likely, significant stenosis/narrowing possible) Cardiology referral placed in January - appointment in May - plan as above - f/u with cardiology as scheduled Orders: rosuvastatin(Crestor 40 mg oral tablet), 1 tab(s), Oral, Daily, for cholesterol, # 90 tab(s), 3 total refill(s), Maintenance, 1 tab(s) Oral Daily,Instr:for cholesterol, Pharmacy: [facility] [Not filled] Fitness: No restrictions. Duty: No restrictions. Mobility: World-wide Qualified IMR: Red - MR for PTSD expires 04/28/24; d ue for influenza vaccination PRAP Disposition: n/a Aeromedical Disposition: U P //SIGNED// Capt Myesha Merida MD Flight Surgeon, Family Physician [address], [place], [place] Extracted from:Title: protonix renewal Author: OSEAS WILDE APA-C Date: 02/28/24 1. R epeat prescription-computer protonix renewed no contraindications patient has follow up Orders: pantoprazole(Protonix 40 mg oral delayed release tablet), 1 tab(s), Oral, Daily, # 90 tab(s), 3 total refill(s), Maintenance, 1 tab(s) Oral Daily, Pharmacy: [facility] [Not filled] Extracted from:Title: Carotid US and CAC score results Author: OSEAS WILDE APA-C Date: 02/19/24 1. C arotid artery stenosis Non smoker, no DM, no known systemic inflammatory conditions. +fam hx of NE (mother had NE in 50s, coronary and carotid stenting a nd hyperlipidemia in other members) Discussed carotid US results with patient and recommend continue with 20mg Crestor daily + 81mg ASA v ascular follow up no chiropractor adjustments patient will follow up in 1 month 43yo male ; incidental finding of left ICA mild atherosclerotic plaque seen at the bulb. PSV=73cm/sec. Has some pre syncope when standing too fast. Currently on Crestor + ASA. Please eval/treat/follow. Thanks. Ordered: Referral Request 2.0 - [facility]D 2. C oronary artery stenosis Discussed CAC score with patient Recommend he continue with crestor 20mg daily + 81mg ASA and cardiology follow up If he cannot get in with cardiology in the next month, consider doing CTA here in clinic follow up in 1 month 43 yo male ; ZQS=792 in the RCA. On Crestor 20mg daily + baby aspirin. Please eval/treat/follow. Thanks. Ordered: Referral Request 2.0 - [facility] Orders: aspirin(aspirin 81 mg oral tablet, chewable), 1 tab(s), Oral, Daily, # 90 tab(s), 3 total refill(s), Maintenance, 1 tab(s) Oral Daily, Pharmacy: [facility] [Federal Rx: #90 last filled 02/19/24] Gave patient printed radiology results to take to specialists If LDL not at goal (>50% reduction in LDL from baseline) , increase to crestor 40mg daily pending jail, he will be in the local area until at least Jul 2024. Extracted from:Title: [facility] Author: ONIEL ADKINS PA Date: 02/02/24 1. 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 A marcela galeanoiew of members 2807-1 was accomplished and reconciled with entries i n EHR. A complete EHR review was accomplished i ncluding a nd SM is found f it for separation. All discrepancies w ere e valuated and documented in this encounter. A focal PE was?accomplished f or concerns not previously addressed in EHR. P: - I MR: Khadra Hernandez found fit for separation - S HPE documents uploaded AMD: J-Coded Flyer; Retiring; No DNIF recommended at this time. 2. E ncounter for other specified special examinations Coding for [id number]. 3. I ncidental finding of Carotid calcification A 43 y/o male with Hypertension and Hyperlipidemia on pharmacotherapy was found to have bilateral Carotid/vertebral artery calcifications seen on dental films. He has a significant family history of sudden cardiac and stroke. P: - Ordered Carotid/Vertebral Artery Duplex US and CT Angiogram - Follow up with PCM after imaging studies AMD: J-Coded Flyer; Retiring; No DNIF recommended at this time. Ordered: CT Heart Calcium Scoring 4. C ervicalgia A 43 y/o male ADAF J-Coded Flyer presents with chronic cervical spine pain and intermittent radiculopathy. Updated C-Spine MRI without contrast on 01/24/2024 identified disc desiccation and height loss most pronounced from C3/4 to C5/6 and to a lesser degree at C6/7. A t C3/4, there is a small posterior disc osteophyte complex causing mild central canal narrowing and minimal left neural foraminal narrowing. A t C4/5, there is mild right neural foraminal narrowing secondary to arthrosis. A t C5/6, there is a small posterior disc osteophyte complex more pronounced on the right causing moderate to severe right neural foraminal narrowing, minimal left neural foraminal narrowing, and moderate central canal with contact of the ventral spinal cord. A t C6/7, there is a small central disc protrusion causing mild central canal narrowing. I ncidental note was made of possible atherosclerosis of the cervical vertebral artery. P: - Member has appointment with Pain Medicine - Follow up with PCM as needed AMD: J-Coded Flyer; Retiring; No DNIF recommended at this time. 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 Pt endorsed symptoms consistent with PTSD including: i ntrusive memories, nightmares, psychological distress and physiological reaction to trauma cues, avoidance of thoughts and feelings and flying on planes, d istorted thoughts that lead to blame self, persistent negative emotional state, h ypervigilance when flying, and concentration difficulties. 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 Pt currently has approximately 2 years of sobriety, attends AA meetings, has a sponsor, and is working 10 steps. Pt amenable to group CPT for trauma but currently unable to attend next groups beginning in December and December due to TDY and skill bridge schedule. Consulted with [facility] and pt was provided with an off-base referral for individual trauma directed treatment. [2] 1. P ost-traumatic stress disorder, unspecified Prognosis: Good Benefits, Risks, Alternatives Discussed: Yes Treatment Plan: Other: off-base referral for trauma-directed treatment Number of Visits Expected: 4-8 Target Symptoms: Trauma Goals of Treatment: Decrease in target symptoms Methods of Monitoring Outcomes: Reduced PCL-5 score Extracted from:Title: left elbow pain Author: OSEAS WILDE APA-C Date: 01/15/24 1. P ain of left elbow joint doubt overuse/trauma injury not gout not tennis/golf elbow sprain/strain? 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 plan: monitor gave RTC precautions recommend phys therapy ice/heat/NSAIDS as needed pt agrees to plan Orders: XR Spine Cervical 2 or 3 Views Extracted from:Title: Hyperlipidemia Author: OSEAS WILDE APA-C Date: 01/10/24 1. 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 Pain mgmt appt in January, needs a new MRI of the c-spine Ordered: MRI Spine Cervical w/o Contrast XR Spine Cervical 2 or 3 Views 2. H yperlipidemia +fam hx of stroke/NE/CVD LDL elevated today Will start crestor, educated on r/b/se goal is LDL<100 repeat labs in 3 months and follow up educated on HLD risk Ordered: Comprehensive Metabolic Panel Lipid Panel 3. E czema palmar eczema, well controlled with clobetasol cream as needed med renewed today PRAP Disposition: n/a Aeromedical Disposition: UP Oseas Wilde, , [employer], BSC Aeromedical Physician [place] Library Director [facility] [place] [employer], [place] Orders: clobetasol topical(clobetasol 0.05% topical cream), 1 appl(s), Topical, BID, # 30 g, 1 total refill(s), Maintenance, 1 appl(s) Topical BID, Pharmacy: [facility] [Not filled] Extracted from:Title: libido, lipids, Pain Mgmt Referral Author: OSEAS WILDE APA-C Date: 12/14/23 1. 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 +chronic hx of c-spine pain, disc herniation per patient. Images done off base ~ has responded well to [facility]OM[facility] in the past he would like a new referral for Pain Mgmt to establish care here PM Referral: 43yo ADAF male, +hx of cervical disc disease w/ right radiculopathies, previously established with PM for steroid injections, last injection in Jul 2022. Now having left sided UE radiculopathies. Please eval/treat/follow. Thanks! Ordered: Referral Request 2.0 - [facility] 2. L ow libido patient would like to discuss sx of low libido since starting lexapro, he would like testosterone checked decreased energy denies breast development, nipple discharge endorses difficulty with weight loss no hx of testicular cancer/trauma no change in peripheral vision +on CPAP, pt states it is working well, has been on it since October 2021 No blood in stool has normal CBC, CMP, TSH BMI= 33.8 He is working on weight loss, but not getting results that he would expect. Has been alcohol free x 2 years Plan: AM total testosterone cortisol A1C prolactin Ordered: Cortisol AM [id number] Hemoglobin A1c Lipid Panel Prolactin Level Testosterone Total 3. H yperlipidemia Mother with NE at 55yo LDL >190 He has tried to improve diet over the last month will re-check LDL to see if there is improvement and calculate ASCVD gave education on NE risk consider CTA at next encounter consider starting statin at next encounter if still >190, would benefit from more aggressive reduction in LDL Fitness: No restrictions. Duty: No restrictions. Mobility: World-wide Qualified IMR: Chencho JOVEL Disposition: n/a Aeromedical Disposition: UP Capt Hugh, [facility], [facility] Aeromedical Physician [place] Library Director [facility] [address] [place], [place] Ordered: Lipid Panel Extracted from:Title: Annual Flight Physical Author: OSEAS WILDE APA-C Date: 11/29/23 1. 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 Has has active waivers: FLYING CLASS: III AFSC: [id number] FINAL DISPOSITION: Medically Acceptable WAIVER EXPIRATION DATE: 01-Jun-2025 WAIVER FOR: [G47.30] SLEEP APNEA, UNSPECIFIED (Obstructive Sleep Apnea, unspecified) [F10.10] ADDED BY ACS - ALCOHOL ABUSE, UNCOMPLICATED (Alcohol Use Disorder, moderate, in sustained remission (Dec 2021) ) [F43.20] ADDED BY ACS - ADJUSTMENT DISORDER, UNSPECIFIED (Adjustment Disorder with mixed depressed mood and anxiety, resolved, controlled with Lexapro , an aeromedically approved medication) COMPLETED BY: Col HARMONY, [facility] S[facility] HQ [facility]/SGP [phone] 15-Sep-2023 Currently: U P Approximate total flying hours per patient: 3500 Here today for annual fly physical. No acute health concerns. No occupational safety concerns. They state they are motivated and feel safe to continue with their flying duties. They state they would be able to egress aircraft safely in the event of an emergency. No medical concerns during f lying operations. Specialists seen: O ff base for CPT Denies chest pain with exercise, syncope, shortness of breath, chronic cough. No change in vision. Has hearing aids for tinnitus masking Denies abdominal pain, pain with swallowing, vomiting, chronic diarrhea, blood in stool. No unexplained weight loss. Physical Exam: FLIGHT PHYSICAL EXAM AREA FINDINGS Vital signs (if hypertensive, do ECG) < JNC8 goal Head and general body appearance, screen for deformities that could affect respirator/eyewear/PPE use n ormal Ears, nose, throat, oral cavity, teeth, gums. TM mobility bilaterally with valsalva n ormal Eyes with funduscopic exam to assess vasculature n ormal Neck ROM, thyroid n ormal Heart, lungs, thorax, cardiopulm exam n ormal Abdomen to assess for ventral and inguinal hernia d enies Skin n ormal limited exam Extremities and spine with their ROM and strength n ormal Balance, DTRs, gait, coordination. n ormal Pulses at wrists n ormal Ability to communicate including general ability to articulate understandably n ormal Behavior and affect n ormal Reviewed audiogram (conducted by Public Health) H 1 +STS, has repeat scheduled Reviewed visual acuity screening and color vision. n ormal Immunizations u p to date ECG starting at 35 and then every 5 years u p to date ASCVD score h e will book follow up for hyperlipidemia follow up Smoking status (if positive, offer enrollment in AF Smoking Cessation Program) n on smoker Reviewed labs r eviewed, LDL elevated MHA/PHA in ASIMS s igned off [facility] requirements updated and current. PE unremarkable. Age appropriate counseling Colonoscopy: colon cancer screening completed early due to fam hx -Aeromedical status: i nactive flying -Waivers: sandra keen, needs reviewed prior to signing 2 992 -AMD WWQ and cleared for continued flying status -UP [id number] issued via [employer]. -Patient encouraged to book additional appointment to discuss hyperlipidemia, testosterone concerns, back pain. Capt Hugh, [facility], BS Aeromedical Physician [place] Library Director [facility] Medical [facility] dx: [id number] Orders: [id number], [id number], [id number], [id number], [id number] 2. P TSD - Post-traumatic stress disorder Established with Dr. Karimi [facility] counseling, weekly sessions for CPT He reports it is going well. NO SI/HI. 3. U ses hearing aid pt has bilateral hearing aids for masking tinnitus started use in May 2024 [facility] , seen 04/20/2023 [employer] hearing aids Mar 26 skill bridge starts, jail date is 31 August 2024 For trained FC II, FC III, GBO, ATC, and SWA, no waiver or grounding required but must have comprehensive audiologic work-up, which he complted in Apr 2023. 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 Pt endorsed symptoms consistent with PTSD including: i ntrusive memories, nightmares, psychological distress and physiological reaction to trauma cues, avoidance of thoughts and feelings and flying on planes, d istorted thoughts that lead to blame self, persistent negative emotional state, h ypervigilance when flying, and concentration difficulties. 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 Pt currently has approximately 2 years of sobriety, attends AA meetings, has a sponsor, and is working 10 steps. Pt amenable to group CPT for trauma but currently unable to attend next groups beginning in December and December due to TDY and skill bridge schedule. Consulted with OI and pt was provided with an off-base referral for individual trauma directed treatment. 1. 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 Pt s current symptoms include depressed mood, anhedonia, fatigue/decreased energy, concentration difficulties, loss of appetite with 15 lb weight loss in 2 weeks, anxiety with weekly panic attacks, restlessness, muscle tension, and increased irritability. P t reports 8.5 months of sobriety and Pt s currently in alcohol rehabilitation in [place]. ?Psychosocial stressors include marital strain and current housing instability. 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 P t prescribed Lexapro by PCM, completed C BT group, and participating in individual therapy. 06-Jan-22 Pt reporting an absence of depressive symptoms and minimal anxiety/irritability symptoms. Pt reports attaining 1 year of sobriety on 09-Jan-23. [2] 1. A nxiety disorder -currently stable 2. 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 C ervical spondylosis Comment: Chiropractic Diversified Adjustments S upine to C/S P rox C/T junction A T O rdered: Chiropractic Manipulative Tx Spinal 3-4 Regions [id number]; 01/06/2023 15:38:00 CDT, AT D iagnosis: 2 . L umbar spondylosis Comment: Chiropractic Diversified Adjustments S sumi posture to [place]lium, SI and L/S A T O rdered: Chiropractic Manipulative Tx Spinal 3-4 Regions [id number]; 01/06/2023 15:38:00 CDT, AT D iagnosis: 3 . C ervical segmental dysfunction Comment: Ordered: Chiropractic Manipulative Tx Spinal 3-4 Regions [id number]; 01/06/2023 15:38:00 CDT, AT D iagnosis: 4 . T horacic segmental dysfunction Comment: Chiropractic Diversified Adjustments P rox C/T junction P rox T/S A T O rdered: Chiropractic Manipulative Tx Spinal 3-4 Regions [id number]; 01/06/2023 15:38:00 CDT, AT D iagnosis: 5 . L umbar segmental dysfunction Comment: Ordered: Chiropractic Manipulative Tx Spinal 3-4 Regions [id number]; 01/06/2023 15:38:00 CDT, AT Matthew Hatfield Chiropractic Graduate Teaching Assistant, assisted with patient care. Patient responded g ood t o initial treatment marked by t emporary increased ROM, t emporary decrease in intensity of pain . P atient i s p rogressing towards STG’s/LTG s . Patient is to continue with home care and prescribed exercises. Follow ? u p as indicated by treatment plan and/or sooner if s/sx increase. Dr. 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 Pt s current symptoms include depressed mood, anhedonia, fatigue/decreased energy, concentration difficulties, loss of appetite with 15 lb weight loss in 2 weeks, anxiety with weekly panic attacks, restlessness, muscle tension, and increased irritability. P t reports 8.5 months of sobriety and Pt s currently in alcohol rehabilitation in [place]. ?Psychosocial stressors include marital strain and current housing instability. 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 P t prescribed Lexapro by PCM, completed C BT group, and participating in individual therapy. 06-Jan-22 Pt reporting an absence of depressive symptoms and minimal anxiety/irritability symptoms. Pt reports attaining 1 year of sobriety on 09-Jan-23. 1. M ajor depressive disorder, recurrent, mild 2. A nxiety disorder, unspecified Prognosis: Good Goals of Treatment: Decrease in target symptoms Methods of Monitoring Outcomes: Reduced FRANKIE-7 score, Reduced PHQ-9 score Extracted from:Title: CHIRO SPEC Author: ELIZA ALANIS Date: 12/07/22 D iagnosis: 1 . L umbago Comment: Chiropractic Diversified Adjustments: S sumi posture to Ilium, SI and L/S A T Bugs: P atient supine with hips, knees, and ankles at 90 degrees and the shoulders at 90 degrees flexion. Lumbar spine bracing with diaphragmatic breathing for 3 sets of 30 seconds. (10 mins) O rdered: Ther Actv Dir Pt Contact by Provider each 15 Min [id number]; 12/07/2022 14:29:00 CDT ? Chiropractic Manipulative Tx Spinal 3-4 Regions 11764; 12/07/2022 14:29:00 CDT ? 33450 - Clinic New Level 3; 12/07/2022 14:29:00 CDT, 25 D iagnosis: 2 . C ervical spondylosis Comment: Ordered: Chiropractic Manipulative Tx Spinal 3-4 Regions 24742; 12/07/2022 14:29:00 CDT ? [id number] - Clinic New Level 3; 12/07/2022 14:29:00 CDT, 25 D iagnosis: 3 . S omatic dysfunction of cervical region Comment: Ordered: Chiropractic Manipulative Tx Spinal 3-4 Regions 20703; 12/07/2022 14:29:00 CDT ? [id number] - Clinic New Level 3; 12/07/2022 14:29:00 CDT, 25 D iagnosis: 4 . S omatic dysfunction of thoracic region Comment: Ordered: Chiropractic Manipulative Tx Spinal 3-4 Regions 50195; 12/07/2022 14:29:00 CDT ? [id number] - Clinic New Level 3; 12/07/2022 14:29:00 CDT, 25 D iagnosis: 5 . S omatic dysfunction of lumbar region Comment: Ordered: Chiropractic Manipulative Tx Spinal 3-4 Regions 78565; 12/07/2022 14:29:00 CDT ? 47822 - Clinic New Level 3; 12/07/2022 14:29:00 CDT, 25 End of Orders Matthew Hatfield Chiropractic Graduate Teaching Assistant, assisted with patient care. Diagnosis of C ervical Spine Spondylosis M47.892, L umbago M54.5 is consistent with clinical findings of b iomechanical low back pain.loss of segmental ROM. Patient prognosis is g ood b ased on patient's i nitial positive response to treatment, & #160;reported decreased pain and increase in range of motion s/p treatment. Educated patient on the risks, benefits, and alternatives to critical care registered nurse which can include exacerbation of current clinical s/sx. Verbal informed consent was given by the patient to proceed with evaluation and treatment. Patient may expect total relief from pain, temporary relief from pain, increased pain, residual muscle soreness after the initial treatment which should resolve within a few days. If pain becomes intolerable patient to contact this clinic directly for acute care appointment and/or referral instruction. Time for patient questions was allotted. Patient advised of the nature of chiropractic examination and treatment, the risks and benefits of chiropractic versus other procedure for his/her condition, relative chance of each occurrence, and alternative options including no treatment. Advised patient of risk of stroke from cervical manipulation is estimated at 1:1 million to 1:10 million, which is less than being struck by lightning, when performed a Doctor of Chiropractic. The risk for adverse events is equally likely in your primary care managers office. Reviewed personal nature of the exam and treatment which may include direct touching of their low back, bottom, and legs by doctor. Advised patient consent may be revoked by them at any time. Pt verbalized understanding of informed consent and verbalized consent to examination and treatment today. Pt directs consent to be valid for all treatments rendered in this clinic. Future Scheduled TestsLaboratoryLipid Panel 12/14/23 09/22/2024 [id number] Assessment and Plan Extracted from:Title : [facility] - Virtual Medication Refill Author: MYESHA BROOKS MD Date: 05/28/24 1. H yperlipidemia Administrative encounter On crestor 40mg (started on 20mg in December, increased to 40mg in April) Medication renewed, comments to pharmacy - pt lost medication Ordered: rosuvastatin(Crestor 40 mg oral tablet), 1 tab(s), Oral, Daily, for cholesterol, # 90 tab(s), 3 total refill(s), Maintenance, Patient lost prescription. Please re-prescribe. Thank you!, 1 tab(s) Oral Daily,Instr:for cholesterol, Pharmacy: [facility] [Not filled] AMD: UP IMR: WWQ //SIGNED// Capt Myesha Merida MD Flight Surgeon, Family Physician [address] [place] Extracted from:Title: FO - Folliculitis Author: MYESHA BROOKS MD Date: 04/30/24 1. F olliculitis Acute, localized to right perioral cheek, x1 day Two pustules, surrounding erythema, and mild edema of cheek on exam - topical mupirocin TID for 1 week - wash area with warm water and soap twice daily - do not pick at or squeeze pustules - motrin/tylenol for pain and swelling PRN - f/u if symptoms spread/worsen, if infection tracks into mouth (do not expect this given localized nature of symptoms and early treatment) Orders: mupirocin topical(mupirocin 2% topical ointment), 1 appl(s), Topical, TID, # 22 g, 0 total refill(s), Acute, 1 appl(s) Topical TID, Pharmacy: [facility] [Not filled] Fitness: No restrictions. Duty: No restrictions. 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 Pt endorsed symptoms consistent with PTSD including: i ntrusive memories, nightmares, psychological distress and physiological reaction to trauma cues, avoidance of thoughts and feelings and flying on planes, d istorted thoughts that lead to blame self, persistent negative emotional state, h ypervigilance when flying, and concentration difficulties. 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 Pt currently has approximately 2 years of sobriety, attends AA meetings, has a sponsor, and is working 10 steps. Pt amenable to group CPT for trauma but currently unable to attend next groups beginning in December and December due to TDY and skill bridge schedule. Consulted with [facility]IC and pt was provided with an off-base referral for individual trauma directed treatment. [5] 1. P ost-traumatic stress disorder, unspecified Prognosis: Good Benefits, Risks, Alternatives Discussed: Yes Target Symptoms: Trauma Addendum by MYESHA BROOKS MD on April 23, 2024 10:58:32 CDT Aeromedical Provider Disposition Stamp Reviewed note. No change in aeromedical status. No new conditions requiring DNIF/DNIC or disqualification. Myesha Merida, Capt, MONCHO, Mary C, FS Flight Surgeon/Family Physician Extracted from:Title: [facility] - Virtual Medication Follow Up Author: MYESHA BROOKS MD Date: 04/16/24 1. C arotid artery stenosis *Virtual encounter* January carotid US: mild plaque in left ICA bulb Vascular referral placed in January - appointment this Rosuvastatin 20mg started in December. Pt doing well without side effects. 48% reduction in LDL since medication initiation. - increase rosuvastatin to 40mg daily to achieve goal > 50% LDL reduction for receivable manager protection of vessels and ASCVD risk reduction (okay to take two 20mg tabs for now, then fill 40mg prescription) - continue ASA 81mg daily - f/u with vascular as scheduled - f/u in clinic if any changes, medication concerns/side effects, or questions - pt agrees with plan, no further questions today Of note, upcoming jail but will be in the area until Jul 2024 2. C oronary artery stenosis January coronary artery c alcium score: 245 ( Mild disease highly likely, significant stenosis/narrowing possible) Cardiology referral placed in January - appointment in May - plan as above - f/u with cardiology as scheduled Orders: rosuvastatin(Crestor 40 mg oral tablet), 1 tab(s), Oral, Daily, for cholesterol, # 90 tab(s), 3 total refill(s), Maintenance, 1 tab(s) Oral Daily,Instr:for cholesterol, Pharmacy: [facility] [Not filled] Fitness: No restrictions. Duty: No restrictions. Mobility: World-wide Qualified IMR: Red - MR for PTSD expires 04/28/24; d ue for influenza vaccination PRAP Disposition: n/a Aeromedical Disposition: U P //SIGNED// Capt Myesha Merida MD Flight Surgeon, Family Physician [address] [place], [place] Extracted from:Title: protonix renewal Author: OSEAS WILDE APA-C Date: 02/28/24 1. R epeat prescription-computer protonix renewed no contraindications patient has follow up Orders: pantoprazole(Protonix 40 mg oral delayed release tablet), 1 tab(s), Oral, Daily, # 90 tab(s), 3 total refill(s), Maintenance, 1 tab(s) Oral Daily, Pharmacy: [facility] [Not filled] Extracted from:Title: Carotid US and CAC score results Author: OSEAS WILDE APA-C Date: 02/19/24 1. C arotid artery stenosis Non smoker, no DM, no known systemic inflammatory conditions. +fam hx of NE (mother had NE in 50s, coronary and carotid stenting a nd hyperlipidemia in other members) Discussed carotid US results with patient and recommend continue with 20mg Crestor daily + 81mg ASA v ascular follow up no chiropractor adjustments patient will follow up in 1 month 43yo male ; incidental finding of left ICA mild atherosclerotic plaque seen at the bulb. PSV=73cm/sec. Has some pre syncope when standing too fast. Currently on Crestor + ASA. Please eval/treat/follow. Thanks. Ordered: Referral Request 2.0 - [facility] 2. C oronary artery stenosis Discussed CAC score with patient Recommend he continue with crestor 20mg daily + 81mg ASA and cardiology follow up If he cannot get in with cardiology in the next month, consider doing CTA here in clinic follow up in 1 month 43 yo male ; PNS=517 in the RCA. On Crestor 20mg daily + baby aspirin. Please eval/treat/follow. Thanks. Ordered: Referral Request 2.[facility] - [facility] Orders: aspirin(aspirin 81 mg oral tablet, chewable), 1 tab(s), Oral, Daily, # 90 tab(s), 3 total refill(s), Maintenance, 1 tab(s) Oral Daily, Pharmacy: [facility] [Federal Rx: #90 last filled 02/19/24] Gave patient printed radiology results to take to specialists If LDL not at goal (>50% reduction in LDL from baseline) , increase to crestor 40mg daily pending jail, he will be in the local area until at least Jul 2024. Extracted from:Title: [facility] Author: ONIEL ADKINS PA Date: 02/02/24 1. 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 A r eview of members 1697-1 was accomplished and reconciled with entries i n EHR. A complete EHR review was accomplished i ncluding a nd SM is found f it for separation. All discrepancies w ere e valuated and documented in this encounter. A focal PE was?accomplished f or concerns not previously addressed in EHR. P: - I MR: Khadra Hernandez found fit for separation - S HPE documents uploaded AMD: J-Coded Flyer; Retiring; No DNIF recommended at this time. 2. E ncounter for other specified special examinations Coding for [id number]. 3. I ncidental finding of Carotid calcification A 43 y/o male with Hypertension and Hyperlipidemia on pharmacotherapy was found to have bilateral Carotid/vertebral artery calcifications seen on dental films. He has a significant family history of sudden cardiac and stroke. P: - Ordered Carotid/Vertebral Artery Duplex US and CT Angiogram - Follow up with PCM after imaging studies AMD: J-Coded Flyer; Retiring; No DNIF recommended at this time. Ordered: CT Heart Calcium Scoring 4. C ervicalgia A 43 y/o male ADAF J-Coded Flyer presents with chronic cervical spine pain and intermittent radiculopathy. Updated C-Spine MRI without contrast on 01/24/2024 identified disc desiccation and height loss most pronounced from C3/4 to C5/6 and to a lesser degree at C6/7. A t C3/4, there is a small posterior disc osteophyte complex causing mild central canal narrowing and minimal left neural foraminal narrowing. A t C4/5, there is mild right neural foraminal narrowing secondary to arthrosis. A t C5/6, there is a small posterior disc osteophyte complex more pronounced on the right causing moderate to severe right neural foraminal narrowing, minimal left neural foraminal narrowing, and moderate central canal with contact of the ventral spinal cord. A t C6/7, there is a small central disc protrusion causing mild central canal narrowing. I ncidental note was made of possible atherosclerosis of the cervical vertebral artery. P: - Member has appointment with Pain Medicine - Follow up with PCM as needed AMD: J-Coded Flyer; Retiring; No DNIF recommended at this time. 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 Pt endorsed symptoms consistent with PTSD including: i ntrusive memories, nightmares, psychological distress and physiological reaction to trauma cues, avoidance of thoughts and feelings and flying on planes, d istorted thoughts that lead to blame self, persistent negative emotional state, h ypervigilance when flying, and concentration difficulties. 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 Pt currently has approximately 2 years of sobriety, attends AA meetings, has a sponsor, and is working 10 steps. Pt amenable to group CPT for trauma but currently unable to attend next groups beginning in December and December due to TDY and skill bridge schedule. Consulted with [facility] and pt was provided with an off-base referral for individual trauma directed treatment. [2] 1. P ost-traumatic stress disorder, unspecified Prognosis: Good Benefits, Risks, Alternatives Discussed: Yes Treatment Plan: Other: off-base referral for trauma-directed treatment Number of Visits Expected: 4-8 Target Symptoms: Trauma Goals of Treatment: Decrease in target symptoms Methods of Monitoring Outcomes: Reduced PCL-5 score Extracted from:Title: left elbow pain Author: OSEAS WILDE APA-C Date: 01/15/24 1. P ain of left elbow joint doubt overuse/trauma injury not gout not tennis/golf elbow sprain/strain? 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 plan: monitor gave RTC precautions recommend phys therapy ice/heat/NSAIDS as needed pt agrees to plan Orders: XR Spine Cervical 2 or 3 Views Extracted from:Title: Hyperlipidemia Author: OSEAS WILDE APA-C Date: 01/10/24 1. 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 Pain mgmt appt in January, needs a new MRI of the c-spine Ordered: MRI Spine Cervical w/o Contrast XR Spine Cervical 2 or 3 Views 2. H yperlipidemia +fam hx of stroke/NE/CVD LDL elevated today Will start crestor, educated on r/b/se goal is LDL<100 repeat labs in 3 months and follow up educated on HLD risk Ordered: Comprehensive Metabolic Panel Lipid Panel 3. E czema palmar eczema, well controlled with clobetasol cream as needed med renewed today PRAP Disposition: n/a Aeromedical Disposition: UP Oseas Wilde, , [employer], [employer] Aeromedical Physician [place] Library Director [facility] [employer], [place] Orders: clobetasol topical(clobetasol 0.05% topical cream), 1 appl(s), Topical, BID, # 30 g, 1 total refill(s), Maintenance, 1 appl(s) Topical BID, Pharmacy: [facility] [Not filled] Extracted from:Title: libido, lipids, Pain Mgmt Referral Author: OSEAS WILDE APA-C Date: 12/14/23 1. 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 +chronic hx of c-spine pain, disc herniation per patient. Images done off base ~ has responded well to TOMMY in the past he would like a new referral for Pain Mgmt to establish care here PM Referral: 43yo ADAF male, +hx of cervical disc disease w/ right radiculopathies, previously established with PM for steroid injections, last injection in Jul 2022. Now having left sided UE radiculopathies. Please eval/treat/follow. Thanks! Ordered: Referral Request 2.0 - DoD 2. L ow libido patient would like to discuss sx of low libido since starting lexapro, he would like testosterone checked decreased energy denies breast development, nipple discharge endorses difficulty with weight loss no hx of testicular cancer/trauma no change in peripheral vision +on CPAP, pt states it is working well, has been on it since October 2021 No blood in stool has normal CBC, CMP, TSH BMI= 33.8 He is working on weight loss, but not getting results that he would expect. Has been alcohol free x 2 years Plan: AM total testosterone cortisol A1C prolactin Ordered: Cortisol AM [id number] Hemoglobin A1c Lipid Panel Prolactin Level Testosterone Total 3. H yperlipidemia Mother with NE at 55yo LDL >190 He has tried to improve diet over the last month will re-check LDL to see if there is improvement and calculate ASCVD gave education on NE risk consider CTA at next encounter consider starting statin at next encounter if still >190, would benefit from more aggressive reduction in LDL Fitness: No restrictions. Duty: No restrictions. Mobility: World-wide Qualified IMR: Chencho PRAKulwinder Disposition: n/a Aeromedical Disposition: UP Capt Hugh, [facility], BS Aeromedical Physician [place] Library Director [facility] [place], ANGELA Ordered: Lipid Panel Extracted from:Title: Annual Flight Physical Author: OSEAS WILDE APA-C Date: 11/29/23 1. 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 Has has active waivers: FLYING CLASS: III AFSC: [id number] FINAL DISPOSITION: Medically Acceptable WAIVER EXPIRATION DATE: 01-Jun-2025 WAIVER FOR: [G47.30] SLEEP APNEA, UNSPECIFIED (Obstructive Sleep Apnea, unspecified) [F10.10] ADDED BY ACS - ALCOHOL ABUSE, UNCOMPLICATED (Alcohol Use Disorder, moderate, in sustained remission (Dec 2021) ) [F43.20] ADDED BY ACS - ADJUSTMENT DISORDER, UNSPECIFIED (Adjustment Disorder with mixed depressed mood and anxiety, resolved, controlled with Lexapro , an aeromedically approved medication) COMPLETED BY: Col HARMONY, [facility] [phone] 15-Sep-2023 Currently: U P Approximate total flying hours per patient: 3500 Here today for annual fly physical. No acute health concerns. No occupational safety concerns. They state they are motivated and feel safe to continue with their flying duties. They state they would be able to egress aircraft safely in the event of an emergency. No medical concerns during f lying operations. Specialists seen: [employer] base for CPT Denies chest pain with exercise, syncope, shortness of breath, chronic cough. No change in vision. Has hearing aids for tinnitus masking Denies abdominal pain, pain with swallowing, vomiting, chronic diarrhea, blood in stool. No unexplained weight loss. Physical Exam: FLIGHT PHYSICAL EXAM AREA FINDINGS Vital signs (if hypertensive, do ECG) < JNC8 goal Head and general body appearance, screen for deformities that could affect respirator/eyewear/PPE use n ormal Ears, nose, throat, oral cavity, teeth, gums. TM mobility bilaterally with valsalva n ormal Eyes with funduscopic exam to assess vasculature n ormal Neck ROM, thyroid n ormal Heart, lungs, thorax, cardiopulm exam n ormal Abdomen to assess for ventral and inguinal hernia d enies Skin n ormal limited exam Extremities and spine with their ROM and strength n ormal Balance, DTRs, gait, coordination. n ormal Pulses at wrists n ormal Ability to communicate including general ability to articulate understandably n ormal Behavior and affect n ormal Reviewed audiogram (conducted by [facility]) H 1 +STS, has repeat scheduled Reviewed visual acuity screening and color vision. n ormal Immunizations u p to date ECG starting at 35 and then every 5 years u p to date ASCVD score h e will book follow up for hyperlipidemia follow up Smoking status (if positive, offer enrollment in AF Smoking Cessation Program) n on smoker Reviewed labs r eviewed, LDL elevated MHA/PHA in ASIMS s igned off [facility] requirements updated and current. PE unremarkable. Age appropriate counseling Colonoscopy: colon cancer screening completed early due to fam hx -Aeromedical status: i nactive flying -Waivers: sandra bowmant, needs reviewed prior to signing 2 992 -AMD WWQ and cleared for continued flying status -UP [id number] issued via [facility]. -Patient encouraged to book additional appointment to discuss hyperlipidemia, testosterone concerns, back pain. Oseas Wilde, , [facility], [facility] Aeromedical Physician [place] Library Director [address] [place] [address] dx: D [id number], [id number] Orders: [id number], [id number], [id number], [id number], [id number] 2. P TSD - Post-traumatic stress disorder Established with Dr. Karimi [facility] counseling, weekly sessions for CPT He reports it is going well. NO SI/HI. 3. U ses hearing aid pt has bilateral hearing aids for masking tinnitus started use in May 2024 [facility] , seen 04/20/2023 [employer] hearing aids Mar 26 skill bridge starts, jail date is 31 August 2024 For trained FC II, FC III, GBO, ATC, and SWA, no waiver or grounding required but must have comprehensive audiologic work-up, which he complted in Apr 2023. 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 Pt endorsed symptoms consistent with PTSD including: i ntrusive memories, nightmares, psychological distress and physiological reaction to trauma cues, avoidance of thoughts and feelings and flying on planes, d istorted thoughts that lead to blame self, persistent negative emotional state, h ypervigilance when flying, and concentration difficulties. 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 Pt currently has approximately 2 years of sobriety, attends AA meetings, has a sponsor, and is working 10 steps. Pt amenable to group CPT for trauma but currently unable to attend next groups beginning in December and December due to TDY and skill bridge schedule. Consulted with [facility] and pt was provided with an off-base referral for individual trauma directed treatment. 1. 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 Pt s current symptoms include depressed mood, anhedonia, fatigue/decreased energy, concentration difficulties, loss of appetite with 15 lb weight loss in 2 weeks, anxiety with weekly panic attacks, restlessness, muscle tension, and increased irritability. P t reports 8.5 months of sobriety and Pt s currently in alcohol rehabilitation in [place]. ?Psychosocial stressors include marital strain and current housing instability. 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 P t prescribed Lexapro by PCM, completed C BT group, and participating in individual therapy. 06-Jan-22 Pt reporting an absence of depressive symptoms and minimal anxiety/irritability symptoms. Pt reports attaining 1 year of sobriety on 09-Jan-23. [2] 1. A nxiety disorder -currently stable 2. 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 C ervical spondylosis Comment: Chiropractic Diversified Adjustments S upine to C/S P rox C/T junction A T O rdered: Chiropractic Manipulative Tx Spinal 3-4 Regions [id number]; 01/06/2023 15:38:00 CDT, AT D iagnosis: 2 . L umbar spondylosis Comment: Chiropractic Diversified Adjustments S sumi posture to [place]lium, SI and L/S A T O rdered: Chiropractic Manipulative Tx Spinal 3-4 Regions [id number]; 01/06/2023 15:38:00 CDT, AT D iagnosis: 3 . C ervical segmental dysfunction Comment: Ordered: Chiropractic Manipulative Tx Spinal 3-4 Regions [id number]; 01/06/2023 15:38:00 CDT, AT D iagnosis: 4 . T horacic segmental dysfunction Comment: Chiropractic Diversified Adjustments P rox C/T junction P rox T/S A T O rdered: Chiropractic Manipulative Tx Spinal 3-4 Regions [id number]; 01/06/2023 15:38:00 CDT, AT D iagnosis: 5 . L umbar segmental dysfunction Comment: Ordered: Chiropractic Manipulative Tx Spinal 3-4 Regions [id number]; 01/06/2023 15:38:00 CDT, AT Matthew Hatfield Chiropractic Graduate Teaching Assistant, assisted with patient care. Patient responded g ood t o initial treatment marked by t emporary increased ROM, t emporary decrease in intensity of pain . P atient i s p rogressing towards STG’s/LTG s . Patient is to continue with home care and prescribed exercises. Follow ? u p as indicated by treatment plan and/or sooner if s/sx increase. Dr. 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 Pt s current symptoms include depressed mood, anhedonia, fatigue/decreased energy, concentration difficulties, loss of appetite with 15 lb weight loss in 2 weeks, anxiety with weekly panic attacks, restlessness, muscle tension, and increased irritability. P t reports 8.5 months of sobriety and Pt s currently in alcohol rehabilitation in [place]. ?Psychosocial stressors include marital strain and current housing instability. 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 P t prescribed Lexapro by PCM, completed C BT group, and participating in individual therapy. 06-Jan-22 Pt reporting an absence of depressive symptoms and minimal anxiety/irritability symptoms. Pt reports attaining 1 year of sobriety on 09-Jan-23. 1. M ajor depressive disorder, recurrent, mild 2. A nxiety disorder, unspecified Prognosis: Good Goals of Treatment: Decrease in target symptoms Methods of Monitoring Outcomes: Reduced FRANKIE-7 score, Reduced PHQ-9 score Extracted from:Title: CHIRO SPEC Author: ELIZA ALANIS Date: 12/07/22 D iagnosis: 1 . L umbago Comment: Chiropractic Diversified Adjustments: S sumi posture to Ilium, SI and L/S A T Bugs: P atient supine with hips, knees, and ankles at 90 degrees and the shoulders at 90 degrees flexion. Lumbar spine bracing with diaphragmatic breathing for 3 sets of 30 seconds. (10 mins) O rdered: Ther Actv Dir Pt Contact by Provider each 15 Min [id number]; 12/07/2022 14:29:00 CDT ? Chiropractic Manipulative Tx Spinal 3-4 Regions [id number]; 12/07/2022 14:29:00 CDT ? 82056 - Clinic New Level 3; 12/07/2022 14:29:00 CDT, 25 D iagnosis: 2 . C ervical spondylosis Comment: Ordered: Chiropractic Manipulative Tx Spinal 3-4 Regions [id number]; 12/07/2022 14:29:00 CDT ? 13361 - Clinic New Level 3; 12/07/2022 14:29:00 CDT, 25 D iagnosis: 3 . S omatic dysfunction of cervical region Comment: Ordered: Chiropractic Manipulative Tx Spinal 3-4 Regions [id number]; 12/07/2022 14:29:00 CDT ? [id number] - Clinic New Level 3; 12/07/2022 14:29:00 CDT, 25 D iagnosis: 4 . S omatic dysfunction of thoracic region Comment: Ordered: Chiropractic Manipulative Tx Spinal 3-4 Regions [id number]; 12/07/2022 14:29:00 CDT ? 73077 - Clinic New Level 3; 12/07/2022 14:29:00 CDT, 25 D iagnosis: 5 . S omatic dysfunction of lumbar region Comment: Ordered: Chiropractic Manipulative Tx Spinal 3-4 Regions [id number]; 12/07/2022 14:29:00 CDT ? 34788 - Clinic New Level 3; 12/07/2022 14:29:00 CDT, 25 End of Orders Matthew Hatfield Chiropractic Graduate Teaching Assistant, assisted with patient care. Diagnosis of C ervical Spine Spondylosis M47.892, L umbago M54.5 is consistent with clinical findings of b iomechanical low back pain.loss of segmental ROM. Patient prognosis is g ood kishan hagen on patient's i nitial positive response to treatment, & #160;reported decreased pain and increase in range of motion s/p treatment. Educated patient on the risks, benefits, and alternatives to critical care registered nurse which can include exacerbation of current clinical s/sx. Verbal informed consent was given by the patient to proceed with evaluation and treatment. Patient may expect total relief from pain, temporary relief from pain, increased pain, residual muscle soreness after the initial treatment which should resolve within a few days. If pain becomes intolerable patient to contact this clinic directly for acute care appointment and/or referral instruction. Time for patient questions was allotted. Patient advised of the nature of chiropractic examination and treatment, the risks and benefits of chiropractic versus other procedure for his/her condition, relative chance of each occurrence, and alternative options including no treatment. Advised patient of risk of stroke from cervical manipulation is estimated at 1:1 million to 1:10 million, which is less than being struck by lightning, when performed a Doctor of Chiropractic. The risk for adverse events is equally likely in your primary care managers office. Reviewed personal nature of the exam and treatment which may include direct touching of their low back, bottom, and legs by doctor. Advised patient consent may be revoked by them at any time. Pt verbalized understanding of informed consent and verbalized consent to examination and treatment today. Pt directs consent to be valid for all treatments rendered in this clinic. Future Scheduled TestsLaboratoryLipid Panel 12/14/23 09/22/2024 [id number] Extracted from:Title : [facility] - Virtual Medication Refill Author: MYESHA BROOKS MD Date: 05/28/24 1. H yperlipidemia Administrative encounter On crestor 40mg (started on 20mg in December, increased to 40mg in April) Medication renewed, comments to pharmacy - pt lost medication Ordered: rosuvastatin(Crestor 40 mg oral tablet), 1 tab(s), Oral, Daily, for cholesterol, # 90 tab(s), 3 total refill(s), Maintenance, Patient lost prescription. Please re-prescribe. Thank you!, 1 tab(s) Oral Daily,Instr:for cholesterol, Pharmacy: [facility] [Not filled] AMD: UP IMR: WWQ //SIGNED// Capt Myesha Merida MD Flight Surgeon, Family Physician [address] [facility] [place], [place] [facility], [place] Extracted from:Title: [facility] - Folliculitis Author: MYESHA BROOKS MD Date: 04/30/24 1. F olliculitis Acute, localized to right perioral cheek, x1 day Two pustules, surrounding erythema, and mild edema of cheek on exam - topical mupirocin TID for 1 week - wash area with warm water and soap twice daily - do not pick at or squeeze pustules - motrin/tylenol for pain and swelling PRN - f/u if symptoms spread/worsen, if infection tracks into mouth (do not expect this given localized nature of symptoms and early treatment) Orders: mupirocin topical(mupirocin 2% topical ointment), 1 appl(s), Topical, TID, # 22 g, 0 total refill(s), Acute, 1 appl(s) Topical TID, Pharmacy: [facility] [Not filled] Fitness: No restrictions. Duty: No restrictions. 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 Pt endorsed symptoms consistent with PTSD including: i ntrusive memories, nightmares, psychological distress and physiological reaction to trauma cues, avoidance of thoughts and feelings and flying on planes, d istorted thoughts that lead to blame self, persistent negative emotional state, h ypervigilance when flying, and concentration difficulties. 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 Pt currently has approximately 2 years of sobriety, attends AA meetings, has a sponsor, and is working 10 steps. Pt amenable to group CPT for trauma but currently unable to attend next groups beginning in December and December due to TDY and skill bridge schedule. Consulted with [facility] and pt was provided with an off-base referral for individual trauma directed treatment. [5] 1. P ost-traumatic stress disorder, unspecified Prognosis: Good Benefits, Risks, Alternatives Discussed: Yes Target Symptoms: Trauma Addendum by MYESHA BROOKS MD on April 23, 2024 10:58:32 CDT Aeromedical Provider Disposition Stamp Reviewed note. No change in aeromedical status. No new conditions requiring DNIF/DNIC or disqualification. Capt Ora, Mary IVAN, FS Flight Surgeon/Family Physician Extracted from:Title: [facility] - Virtual Medication Follow Up Author: MYESHA BROOKS MD Date: 04/16/24 1. C arotid artery stenosis *Virtual encounter* January carotid US: mild plaque in left ICA bulb Vascular referral placed in January - appointment this Rosuvastatin 20mg started in December. Pt doing well without side effects. 48% reduction in LDL since medication initiation. - increase rosuvastatin to 40mg daily to achieve goal > 50% LDL reduction for long-term protection of vessels and ASCVD risk reduction (okay to take two 20mg tabs for now, then fill 40mg prescription) - continue ASA 81mg daily - f/u with vascular as scheduled - f/u in clinic if any changes, medication concerns/side effects, or questions - pt agrees with plan, no further questions today Of note, upcoming jail but will be in the area until Jul 2024 2. C oronary artery stenosis January coronary artery c alcium score: 245 ( Mild disease highly likely, significant stenosis/narrowing possible) Cardiology referral placed in January - appointment in May - plan as above - f/u with cardiology as scheduled Orders: rosuvastatin(Crestor 40 mg oral tablet), 1 tab(s), Oral, Daily, for cholesterol, # 90 tab(s), 3 total refill(s), Maintenance, 1 tab(s) Oral Daily,Instr:for cholesterol, Pharmacy: [facility] [Not filled] Fitness: No restrictions. Duty: No restrictions. Mobility: World-wide Qualified IMR: Red - MR for PTSD expires 04/28/24; d ue for influenza vaccination PRAP Disposition: n/a Aeromedical Disposition: U P //SIGNED// Capt Myesha Merida MD Flight Surgeon, Family Physician [address], [place], [place] Extracted from:Title: protonix renewal Author: OSEAS WILDE APA-C Date: 02/28/24 1. R epeat prescription-computer protonix renewed no contraindications patient has follow up Orders: pantoprazole(Protonix 40 mg oral delayed release tablet), 1 tab(s), Oral, Daily, # 90 tab(s), 3 total refill(s), Maintenance, 1 tab(s) Oral Daily, Pharmacy: [facility] [Not filled] Extracted from:Title: Carotid US and CAC score results Author: OSEAS WILDE APA-C Date: 02/19/24 1. C arotid artery stenosis Non smoker, no DM, no known systemic inflammatory conditions. +fam hx of NE (mother had NE in 50s, coronary and carotid stenting a nd hyperlipidemia in other members) Discussed carotid US results with patient and recommend continue with 20mg Crestor daily + 81mg ASA v ascular follow up no chiropractor adjustments patient will follow up in 1 month 43yo male ; incidental finding of left ICA mild atherosclerotic plaque seen at the bulb. PSV=73cm/sec. Has some pre syncope when standing too fast. Currently on Crestor + ASA. Please eval/treat/follow. Thanks. Ordered: Referral Request 2.0 - DoD 2. C oronary artery stenosis Discussed CAC score with patient Recommend he continue with crestor 20mg daily + 81mg ASA and cardiology follow up If he cannot get in with cardiology in the next month, consider doing CTA here in clinic follow up in 1 month 43 yo male ; XSL=691 in the RCA. On Crestor 20mg daily + baby aspirin. Please eval/treat/follow. Thanks. Ordered: Referral Request 2.0 - DoD Orders: aspirin(aspirin 81 mg oral tablet, chewable), 1 tab(s), Oral, Daily, # 90 tab(s), 3 total refill(s), Maintenance, 1 tab(s) Oral Daily, Pharmacy: [facility] [Federal Rx: #90 last filled 02/19/24] Gave patient printed radiology results to take to specialists If LDL not at goal (>50% reduction in LDL from baseline) , increase to crestor 40mg daily pending jail, he will be in the local area until at least Jul 2024. Extracted from:Title: [facility] [place] [facility] Author: ONIEL ADKINS PA Date: 02/02/24 1. 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 A r eview of members 8297-5 was accomplished and reconciled with entries i n EHR. A complete EHR review was accomplished i ncluding a nd SM is found f it for separation. All discrepancies w ere e valuated and documented in this encounter. A focal PE was?accomplished f or concerns not previously addressed in EHR. P: - I MR: Khadra Hernandez found fit for separation - S HPE documents uploaded AMD: J-Coded Flyer; Retiring; No DNIF recommended at this time. 2. E ncounter for other specified special examinations Coding for [id number]. 3. I ncidental finding of Carotid calcification A 43 y/o male with Hypertension and Hyperlipidemia on pharmacotherapy was found to have bilateral Carotid/vertebral artery calcifications seen on dental films. He has a significant family history of sudden cardiac and stroke. P: - Ordered Carotid/Vertebral Artery Duplex US and CT Angiogram - Follow up with PCM after imaging studies AMD: J-Coded Flyer; Retiring; No DNIF recommended at this time. Ordered: CT Heart Calcium Scoring 4. C ervicalgia A 43 y/o male ADAF J-Coded Flyer presents with chronic cervical spine pain and intermittent radiculopathy. Updated C-Spine MRI without contrast on 01/24/2024 identified disc desiccation and height loss most pronounced from C3/4 to C5/6 and to a lesser degree at C6/7. A t C3/4, there is a small posterior disc osteophyte complex causing mild central canal narrowing and minimal left neural foraminal narrowing. A t C4/5, there is mild right neural foraminal narrowing secondary to arthrosis. A t C5/6, there is a small posterior disc osteophyte complex more pronounced on the right causing moderate to severe right neural foraminal narrowing, minimal left neural foraminal narrowing, and moderate central canal with contact of the ventral spinal cord. A t C6/7, there is a small central disc protrusion causing mild central canal narrowing. I ncidental note was made of possible atherosclerosis of the cervical vertebral artery. P: - Member has appointment with Pain Medicine - Follow up with PCM as needed AMD: J-Coded Flyer; Retiring; No DNIF recommended at this time. 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 Pt endorsed symptoms consistent with PTSD including: i ntrusive memories, nightmares, psychological distress and physiological reaction to trauma cues, avoidance of thoughts and feelings and flying on planes, d istorted thoughts that lead to blame self, persistent negative emotional state, h ypervigilance when flying, and concentration difficulties. ?Pt self-referred to [facility] [place] for symptoms of depression was treated with both psychotherapy and medications prescribed by [facility] and after assessment at [facility] was returned back to flying status. P marion also has past A DAPT ABC/education without diagnosis resulting from [employer] [facility] and [employer] services obtained throughout career at many bases. Pt currently has approximately 2 years of sobriety, attends AA meetings, has a sponsor, and is working 10 steps. Pt amenable to group CPT for trauma but currently unable to attend next groups beginning in December and December due to TDY and skill bridge schedule. Consulted with [facility] and pt was provided with an off-base referral for individual trauma directed treatment. [2] 1. P ost-traumatic stress disorder, unspecified Prognosis: Good Benefits, Risks, Alternatives Discussed: Yes Treatment Plan: Other: off-base referral for trauma-directed treatment Number of Visits Expected: 4-8 Target Symptoms: Trauma Goals of Treatment: Decrease in target symptoms Methods of Monitoring Outcomes: Reduced PCL-5 score Extracted from:Title: left elbow pain Author: OSEAS WILDE APA-C Date: 01/15/24 1. P ain of left elbow joint doubt overuse/trauma injury not gout not tennis/golf elbow sprain/strain? 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 plan: monitor gave RTC precautions recommend phys therapy ice/heat/NSAIDS as needed pt agrees to plan Orders: XR Spine Cervical 2 or 3 Views Extracted from:Title: Hyperlipidemia Author: OSEAS WILDE APA-C Date: 01/10/24 1. 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 Pain mgmt appt in January, needs a new MRI of the c-spine Ordered: MRI Spine Cervical w/o Contrast XR Spine Cervical 2 or 3 Views 2. H yperlipidemia +fam hx of stroke/NE/CVD LDL elevated today Will start crestor, educated on r/b/se goal is LDL<100 repeat labs in 3 months and follow up educated on HLD risk Ordered: Comprehensive Metabolic Panel Lipid Panel 3. E czema palmar eczema, well controlled with clobetasol cream as needed med renewed today PRAP Disposition: n/a Aeromedical Disposition: UP Oseas Wilde, Capt, [employer], BSC Aeromedical Physician [place] Library Director [facility] [employer], [place] Orders: clobetasol topical(clobetasol 0.05% topical cream), 1 appl(s), Topical, BID, # 30 g, 1 total refill(s), Maintenance, 1 appl(s) Topical BID, Pharmacy: [facility] [Not filled] Extracted from:Title: libido, lipids, Pain Mgmt Referral Author: OSEAS WILDE APA-C Date: 12/14/23 1. 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 +chronic hx of c-spine pain, disc herniation per patient. Images done off base ~ has responded well to TOMMY in the past he would like a new referral for Pain Mgmt to establish care here PM Referral: 43yo ADAF male, +hx of cervical disc disease w/ right radiculopathies, previously established with PM for steroid injections, last injection in Jul 2022. Now having left sided UE radiculopathies. Please eval/treat/follow. Thanks! Ordered: Referral Request 2.0 - DoD 2. L ow libido patient would like to discuss sx of low libido since starting lexapro, he would like testosterone checked decreased energy denies breast development, nipple discharge endorses difficulty with weight loss no hx of testicular cancer/trauma no change in peripheral vision +on CPAP, pt states it is working well, has been on it since October 2021 No blood in stool has normal CBC, CMP, TSH BMI= 33.8 He is working on weight loss, but not getting results that he would expect. Has been alcohol free x 2 years Plan: AM total testosterone cortisol A1C prolactin Ordered: Cortisol AM [id number] Hemoglobin A1c Lipid Panel Prolactin Level Testosterone Total 3. H yperlipidemia Mother with NE at 55yo LDL >190 He has tried to improve diet over the last month will re-check LDL to see if there is improvement and calculate ASCVD gave education on NE risk consider CTA at next encounter consider starting statin at next encounter if still >190, would benefit from more aggressive reduction in LDL Fitness: No restrictions. Duty: No restrictions. Mobility: World-wide Qualified IMR: Chencho BECKA Disposition: n/a Aeromedical Disposition: UP Oseas Wilde, , [facility] Aeromedical Physician [place] Library Director [facility] [place], [place] Ordered: Lipid Panel Extracted from:Title: Annual Flight Physical Author: OSEAS WILDE APA-C Date: 11/29/23 1. 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 Has has active waivers: FLYING CLASS: III AFSC: [id number] FINAL DISPOSITION: Medically Acceptable WAIVER EXPIRATION DATE: 01-Jun-2025 WAIVER FOR: [G47.30] SLEEP APNEA, UNSPECIFIED (Obstructive Sleep Apnea, unspecified) [F10.10] ADDED BY ACS - ALCOHOL ABUSE, UNCOMPLICATED (Alcohol Use Disorder, moderate, in sustained remission (Dec 2021) ) [F43.20] ADDED BY ACS - ADJUSTMENT DISORDER, UNSPECIFIED (Adjustment Disorder with mixed depressed mood and anxiety, resolved, controlled with Lexapro , an aeromedically approved medication) COMPLETED BY: Col HARMONY, [facility]/SG [phone] 15-Sep-2023 Currently: U P Approximate total flying hours per patient: 3500 Here today for annual fly physical. No acute health concerns. No occupational safety concerns. They state they are motivated and feel safe to continue with their flying duties. They state they would be able to egress aircraft safely in the event of an emergency. No medical concerns during f lying operations. Specialists seen: [employer] [facility] for CPT Denies chest pain with exercise, syncope, shortness of breath, chronic cough. No change in vision. Has hearing aids for tinnitus masking Denies abdominal pain, pain with swallowing, vomiting, chronic diarrhea, blood in stool. No unexplained weight loss. Physical Exam: FLIGHT PHYSICAL EXAM AREA FINDINGS Vital signs (if hypertensive, do ECG) < JNC8 goal Head and general body appearance, screen for deformities that could affect respirator/eyewear/PPE use n ormal Ears, nose, throat, oral cavity, teeth, gums. TM mobility bilaterally with valsalva n ormal Eyes with funduscopic exam to assess vasculature n ormal Neck ROM, thyroid n ormal Heart, lungs, thorax, cardiopulm exam n ormal Abdomen to assess for ventral and inguinal hernia d enies Skin n ormal limited exam Extremities and spine with their ROM and strength n ormal Balance, DTRs, gait, coordination. n ormal Pulses at wrists n ormal Ability to communicate including general ability to articulate understandably n ormal Behavior and affect n ormal Reviewed audiogram (conducted by Public Health) H 1 +STS, has repeat scheduled Reviewed visual acuity screening and color vision. n ormal Immunizations u p to date ECG starting at 35 and then every 5 years u p to date ASCVD score h e will book follow up for hyperlipidemia follow up Smoking status (if positive, offer enrollment in AF Smoking Cessation Program) n on smoker Reviewed labs r eviewed, LDL elevated MHA/PHA in ASIMS s igned off [facility] requirements updated and current. PE unremarkable. Age appropriate counseling Colonoscopy: colon cancer screening completed early due to fam hx -Aeromedical status: i nactive flying -Waivers: sandra keen, needs reviewed prior to signing 2 992 -AMD WWQ and cleared for continued flying status -UP [id number] issued via [employer]. -Patient encouraged to book additional appointment to discuss hyperlipidemia, testosterone concerns, back pain. Oseas Wilde, , [facility], BS Aeromedical Physician [place] Library Director [facility] dx: D [id number], [id number] Orders: [id number], [id number], [id number], [id number], 28577 2. P TSD - Post-traumatic stress disorder Established with Dr. Karimi [facility] counseling, weekly sessions for CPT He reports it is going well. NO SI/HI. 3. U ses hearing aid pt has bilateral hearing aids for masking tinnitus started use in May 2024 [facility] , seen 04/20/2023 [employer] hearing aids 9 Sept 24 skill bridge starts, jail date is 31 August 2024 For trained FC II, FC III, GBO, ATC, and SWA, no waiver or grounding required but must have comprehensive audiologic work-up, which he complted in Apr 2023. 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 Pt endorsed symptoms consistent with PTSD including: i ntrusive memories, nightmares, psychological distress and physiological reaction to trauma cues, avoidance of thoughts and feelings and flying on planes, d istorted thoughts that lead to blame self, persistent negative emotional state, h ypervigilance when flying, and concentration difficulties. 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 Pt currently has approximately 2 years of sobriety, attends AA meetings, has a sponsor, and is working 10 steps. Pt amenable to group CPT for trauma but currently unable to attend next groups beginning in December and December due to TDY and skill bridge schedule. Consulted with [facility] and pt was provided with an off-base referral for individual trauma directed treatment. 1. 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 Pt s current symptoms include depressed mood, anhedonia, fatigue/decreased energy, concentration difficulties, loss of appetite with 15 lb weight loss in 2 weeks, anxiety with weekly panic attacks, restlessness, muscle tension, and increased irritability. P t reports 8.5 months of sobriety and Pt s currently in alcohol rehabilitation in [place]. ?Psychosocial stressors include marital strain and current housing instability. 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 P t prescribed Lexapro by PCM, completed C BT group, and participating in individual therapy. 06-Jan-22 Pt reporting an absence of depressive symptoms and minimal anxiety/irritability symptoms. Pt reports attaining 1 year of sobriety on 09-Jan-23. [2] 1. A nxiety disorder -currently stable 2. 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 C ervical spondylosis Comment: Chiropractic Diversified Adjustments S upine to C/S P rox C/T junction A T O rdered: Chiropractic Manipulative Tx Spinal 3-4 [place]ions [id number]; 01/06/2023 15:38:00 CDT, AT D iagnosis: 2 . L umbar spondylosis Comment: Chiropractic Diversified Adjustments S sumi posture to [place], SI and L/S A T O rdered: Chiropractic Manipulative Tx Spinal 3-4 Regions [id number]; 01/06/2023 15:38:00 CDT, AT D iagnosis: 3 . C ervical segmental dysfunction Comment: Ordered: Chiropractic Manipulative Tx Spinal 3-4 Reg[place] [id number]; 01/06/2023 15:38:00 CDT, AT D iagnosis: 4 . T horacic segmental dysfunction Comment: Chiropractic Diversified Adjustments P rox C/T junction P rox T/S A T O rdered: Chiropractic Manipulative Tx Spinal 3-4 [place] [id number]; 01/06/2023 15:38:00 CDT, AT D iagnosis: 5 . L umbar segmental dysfunction Comment: Ordered: Chiropractic Manipulative Tx Spinal 3-4 Regions [id number]; 01/06/2023 15:38:00 CDT, AT Matthew Hatfield Chiropractic Graduate Teaching Assistant, assisted with patient care. Patient responded g ood t o initial treatment marked by t emporary increased ROM, t emporary decrease in intensity of pain . P atient i s p rogressing towards STG’s/LTG s . Patient is to continue with home care and prescribed exercises. Follow ? u p as indicated by treatment plan and/or sooner if s/sx increase. Dr. 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 Pt s current symptoms include depressed mood, anhedonia, fatigue/decreased energy, concentration difficulties, loss of appetite with 15 lb weight loss in 2 weeks, anxiety with weekly panic attacks, restlessness, muscle tension, and increased irritability. P t reports 8.5 months of sobriety and Pt s currently in alcohol rehabilitation in [place]. ?Psychosocial stressors include marital strain and current housing instability. 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 P t prescribed Lexapro by PCM, completed C BT group, and participating in individual therapy. 06-Jan-22 Pt reporting an absence of depressive symptoms and minimal anxiety/irritability symptoms. Pt reports attaining 1 year of sobriety on 09-Jan-23. 1. M ajor depressive disorder, recurrent, mild 2. A nxiety disorder, unspecified Prognosis: Good Goals of Treatment: Decrease in target symptoms Methods of Monitoring Outcomes: Reduced FRANKIE-7 score, Reduced PHQ-9 score Extracted from:Title: CHIRO SPEC Author: ELIZA ALANIS Date: 12/07/22 D iagnosis: 1 . L umbago Comment: Chiropractic Diversified Adjustments: S sumi posture to [place], SI and L/S A T Bugs: P atient supine with hips, knees, and ankles at 90 degrees and the shoulders at 90 degrees flexion. Lumbar spine bracing with diaphragmatic breathing for 3 sets of 30 seconds. (10 mins) O rdered: Ther Actv Dir Pt Contact by Provider each 15 Min [id number]; 12/07/2022 14:29:00 CDT ? Chiropractic Manipulative Tx Spinal 3-4 Regions [id number]; 12/07/2022 14:29:00 CDT ? [id number] - Clinic New Level 3; 12/07/2022 14:29:00 CDT, 25 D iagnosis: 2 . C ervical spondylosis Comment: Ordered: Chiropractic Manipulative Tx Spinal 3-4 Regions [id number]; 12/07/2022 14:29:00 CDT ? [facility] - Clinic New Level 3; 12/07/2022 14:29:00 CDT, 25 D iagnosis: 3 . S omatic dysfunction of cervical region Comment: Ordered: Chiropractic Manipulative Tx Spinal 3-4 Regions [id number]; 12/07/2022 14:29:00 CDT ? [id number] - Clinic New Level 3; 12/07/2022 14:29:00 CDT, 25 D iagnosis: 4 . S omatic dysfunction of thoracic region Comment: Ordered: Chiropractic Manipulative Tx Spinal 3-4 Regions [id number]; 12/07/2022 14:29:00 CDT ? [facility] - Clinic New Level 3; 12/07/2022 14:29:00 CDT, 25 D iagnosis: 5 . S omatic dysfunction of lumbar region Comment: Ordered: Chiropractic Manipulative Tx Spinal 3-4 Reg[place] [id number]; 12/07/2022 14:29:00 CDT ? [facility] - Clinic New Level 3; 12/07/2022 14:29:00 CDT, 25 End of Orders Eliza Alanis, Matthew Chiropractic Graduate Teaching Assistant, assisted with patient care. Diagnosis of C ervical Spine Spondylosis M47.892, L umbago M54.5 is consistent with clinical findings of b iomechanical low back pain.loss of segmental ROM. Patient prognosis is g ood b ased on patient's i nitial positive response to treatment, & #160;reported decreased pain and increase in range of motion s/p treatment. Educated patient on the risks, benefits, and alternatives to critical care registered nurse which can include exacerbation of current clinical s/sx. Verbal informed consent was given by the patient to proceed with evaluation and treatment. Patient may expect total relief from pain, temporary relief from pain, increased pain, residual muscle soreness after the initial treatment which should resolve within a few days. If pain becomes intolerable patient to contact this clinic directly for acute care appointment and/or referral instruction. Time for patient questions was allotted. Patient advised of the nature of chiropractic examination and treatment, the risks and benefits of chiropractic versus other procedure for his/her condition, relative chance of each occurrence, and alternative options including no treatment. Advised patient of risk of stroke from cervical manipulation is estimated at 1:1 million to 1:10 million, which is less than being struck by lightning, when performed a Doctor of Chiropractic. The risk for adverse events is equally likely in your primary care managers office. Reviewed personal nature of the exam and treatment which may include direct touching of their low back, bottom, and legs by doctor. Advised patient consent may be revoked by them at any time. Pt verbalized understanding of informed consent and verbalized consent to examination and treatment today. Pt directs consent to be valid for all treatments rendered in this clinic. Future Scheduled TestsLaboratoryLipid Panel 12/14/23 09/22/2024 Unknown Organization Plan of Care List of future care activities from [facility] Affairs facilities. Additional future care activities may be listed in the Assessment and Plan section. Date/Time Care Activity Care Activity Detail Facili ty 09/23/2024 AMBULATORY - MEDICINE AMBULATORY - MEDICI [facility] Functional Status Combined list of recent functional and cognitive assessments recorded at Department of Defense and Veterans Affairs (VA).VA Functional Galliano Measurement (FIM) Scale: 1 = Total Assistance (Subject = 0% +), 2 = Maximal Assistance (Subject = 25% +), 3 = Moderate Assistance (Subject = 50% +), 4 = Minimal Assistance (Subject = 75% +), 5 = Supervision, 6 = Modified Galliano (Device), 7 = Complete Galliano (Timely, Safely). Assessment Date/Time Source Assessment Type Assessment Skill Assessment Score Assessment Details FUNCTIONAL 04/22/ 24Home Dietary Supplements Captured Unable to obtain
--- OUTSIDE RECORDS SUMMARY | 2024-09-22 10:23 | XMS_ITS | Encounter Summary ---
Author Organization [facility] Facility Care Team Providers Care Assistant Womens Volleyball Coach Name Role Phone Referring, Unknown Primary Care Provider Jesenia Wells Primary Care Provider [phone] [phone] Tutu Barnhart MD Unavailable Encounter Details Date Type Department Care Team (Latest Contact Info) Description 11/17/2016 Orders Only [facility] CLINCONV ProviderYamilka MD [address] [place] [address] Social History Tobacco Use Types Packs/Day Years Used Date Smoking Tobacco: Never Assessed Sex and Gender Information Value Date Recorded Sex Assigned at Not on file Legal Sex Male 9:10 PM SKELP PROCESSOR Gender Identity Not on file Sexual Orientation Not on file documented as of this encounter Plan of Treatment Not on file documented as of this encounter Procedures Procedure Name Priority Date/Time Associated Diagnosis Comments SCAN - PATHOLOGY 11/17/2016 12:0 0 AM CDT documented in this encounter Results * SCAN - PATHOLOGY (11/17/2016 12:00 AM CDT) Narrative 11/17/2016 12:00 AM CDT Ordered by an unspecified provider. Historical Provider Final Res ult documented in this encounter Visit Diagnoses Not on filedocumented in this encounter Additional Health Concerns Infection Onset Date Last Indicated Resolved Time COVID: Suspected 07/09/2024 07/09/2024 07/09/2024 1:14 PM SKELP PROCESSOR documented as of this encounter Care Teams Assistant Womens Volleyball Coach Relationship Specialty Start Date End Date Referring, Unknown, MD PCP - General Pediatrics 06/02/23 06/06/23 Jesenia Patel PA [address] [place] [address] PCP - General Physician Health Editor 06/07/23 Tutu Barnhart MD [address] [place] [address] Consulting Physician Pain Management 05/10/24 documented as of this encounter
--- OUTSIDE RECORDS SUMMARY | 2024-09-22 10:23 | XMS_ITS | Encounter Summary ---
Author Organization [facility] Address [address] [place] [address] Phone Care Team Providers Care Capsule Maker Name Role Phone Referring, Unknown Primary Care Provider Unav ailable Jesenia Patel Primary Care Provider [phone] [phone] Tutu Barnhart MD Unavailable Reason for Visit * Reason Onset Date Comments New Patient 02/28/2023 Encounter Details Date Type Department Care Team (Late Contact Info) Description 02/28/2023 Telephone [facility] Cardiology [address] [facility] 8th [place] [address] [place] [address] Frank Perez New Patient Social History Tobacco Use Types Packs/Day Years Used Date Smoking Tobacco: Never Assessed Sex and Gender Information Value Date Recorded Sex Assigned at Not on file Legal Sex Male 9:10 PM INSURANCE SALESMAN Gender Identity Not on file Sexual Orientation Not on file documented as of this encounter Plan of Treatment Not on file documented as of this encounter Visit Diagnoses Not on filedocumented in this encounter Additional Health Concerns Infection Onset Date Last Indicated Resolved Time COVID: Suspected 07/09/2024 07/09/2024 07/09/2024 1:14 PM INSURANCE SALESMAN documented as of this encounter Care Teams Capsule Maker Relationship Specialty Start Date End Date Referring, Unknown, PCP - General Pediatrics 06/02/23 06/06/23 Jesenia Patel PA [address] [place] [address] PCP - General Physician Electronic Security Specialist 06/07/23 Tutu Barnhart MD [address] [place] [address] Consulting Physician Pain Management 05/10/24 documented as of this encounter
--- OUTSIDE RECORDS SUMMARY | 2024-09-22 10:23 | XMS_ITS ---
Author Organization [facility] Address [address] [place], [place] [address] Care Team Providers Care Embedded Linux Developer Name Role Phone Medical [facility], [facility] [place] [facility] [facility] Unava ilable Unavailable ENEIDA ZEE Unavailable [phone] REASON FOR VISIT orthotics doing great Encounters Encounter Location Date Provider Diagnosis [facility] [address] [facility] [address] [place], [place] [id number] 12/26/2023 ENEIDA ZEE Plan Of Treatment No Information Progress Notes * Sina WALKERDOB:1979 (44 yo M)Acc No.[id number]:12/26/2023 Patient: Miguel CISNEROSSina Provider: Polina Zee DPM :1980 A ge:43 Y S ex:Male Date:12/26/2023 Address:[address] [place], [place] [id number] Subjective: * Chief Complaints: * 1 . Orthotics doing great. * Medical History: Objective: * Vitals: Assessment: Plan: * Treatment: * Billing Information: * Visit Code: * Procedure Codes: * Electronic signature of ENEIDA ZEE DPM on 09/22/2024 at 10:23 AM CDT Sign off status: Pending * Provider: Polina Zee DPM Date: 0 12/26/2023 Generated for Dougie wilcox/Sergei/eTransmitting on: 0 09/22/2024 10:23 AM CDT
--- OUTSIDE RECORDS SUMMARY | 2024-09-22 10:23 | XMS_ITS | Encounter Summary ---
Author Organization [facility] Facility Care Team Providers Care Perishable Freight Inspector Name Role Phone Referring, Unknown Primary Care Provider Jesenia Wells Primary Care Provider [phone] [phone] Tutu Barnhart MD Unavailable Encounter Details Date Type Department Care Team (Latest Contact Info) Description 11/03/2016 Orders Only [facility] CLINCONV ProviderYamilka MD [address] [place] [address] Social History Tobacco Use Types Packs/Day Years Used Date Smoking Tobacco: Never Assessed Sex and Gender Information Value Date Recorded Sex Assigned at Not on file Legal Sex Male 9:10 PM CERTIFIED HEARING INSTRUMENT DISPENSER Gender Identity Not on file Sexual Orientation Not on file documented as of this encounter Plan of Treatment Not on file documented as of this encounter Procedures Procedure Name Priority Date/Time Associated Diagnosis Comments PROCEDURE - RESULT 11/03/2016 12 :00 AM CDT documented in this encounter Results * PROCEDURE - RESULT (11/03/2016 12:00 AM CDT) Narrative 11/03/2016 12:00 AM CDT Ordered by an unspecified provider. us Historical Provider Final Res ult documented in this encounter Visit Diagnoses Not on filedocumented in this encounter Additional Health Concerns Infection Onset Date Last Indicated Resolved Time COVID: Suspected 07/09/2024 07/09/2024 07/09/2024 1:14 PM CERTIFIED HEARING INSTRUMENT DISPENSER documented as of this encounter Care Teams Perishable Freight Inspector Relationship Specialty Start Date End Date Referring, Unknown, MD PCP - General Pediatrics 06/02/23 06/06/23 Jesenia Patel PA [address] [place] [address] PCP - General Physician Cupola Melter Helper 06/07/23 Tutu Barnhart MD [address] [place] [address] Consulting Physician Pain Management 05/10/24 documented as of this encounter
--- OUTSIDE RECORDS SUMMARY | 2024-09-22 10:23 | XMS_ITS ---
Author Organization [facility] Address [address] [place], [place] [id number] Care Team Providers Care Printed Circuit Boards Router Name Role Phone Medical [facility], [facility] [place] [facility] Fifth Unava ilable Unavailable SNOOK, ENEIDA Unavailable [phone] REASON FOR VISIT Cancel Appointment Request Encounters Encounter Location Date Provider Diagnosis [facility] [address] [place], [place] [id number] 12/24/2023 ENEIDA SNOOK Plan Of Treatment No Information Progress Notes * Sina DAVISDOB:1979 (43 yo M)Acc No.[id number]:12/24/2023 Patient: Miguel Sina CISNEROS :1980 A ge:43 Y S ex:Male Address:[address] [place] [address] * true * Date: Generated for Printi ng/Faxing/eTransmitting on: 0 09/22/2024 10:22 AM CDT
--- OUTSIDE RECORDS SUMMARY | 2024-09-22 10:24 | XMS_ITS | Clinical Summary ---
Author Organization [facility] Address [address] [place] [address] Care Team Providers Care Internet Sales Manager Name Role Phone Amanda Jesenia MAY Primary Care Provider [phone] [phone] Tutu Barnhart MD Unavailable Allergies No known active allergies Medications escitalopram (LEXAPRO) 20 mg tablet May cause drowsiness.Ta ke or use exactly as directed.Obta in advice for OTCs.May impair driving.Check with your doctor before becoming . 10/18/2022 Active lisinopriL (PRINIVIL,ZESTR IL) 10 mg tablet Take 1 tablet (10 mg total) by mouth daily 09/26/2022 Active loratadine (CLARITIN) 10 mg tablet May cause drowsiness.Ob tain advice for OTCs. 12/28/[address] (PROTONIX) 40 mg EC tablet Take or use exactly as directed.Obta in advice for OTCs.Swallow whole. 04/03/2023 Active rosuvastatin (CRESTOR) 40 mg tablet Take 0.5 tablets (20 mg total) by mouth daily Active aspirin 81 mg enteric coated tablet Take 1 tablet (81 mg total) by mouth daily Active promethazine-DM (PROMETHAZINE-D M) 1.25-3 mg/mL syrup Take 5 mL by mouth 4 (four) times a day as needed for cough 118 mL 07/09/2024 Active Active Problems Problem Noted Date Diagnosed Date Stenosis of carotid artery 05/06/2024 Assessment & Plan (05/06/2024 11:20 AM GOLD LEAF ROLLER): Patient has no evidence of carotid stenosis bilaterally. He had both a CT angiogram and carotid duplex performed which were normal. No workup needed. Follow up PRN. MYESHA (obstructive sleep apnea) 06/07/2023 Assessment & Plan (06/07/2023 10:34 AM GOLD LEAF ROLLER): The patient continues to benefit from the auto titrating CPAP unit with an auto titrating range of 6-10 cm water pressure for ongoing symptoms of MYESHA. His DME supplier is [employer]. Phone # . He will follow up here annually. Encounters Date Type Department Care Team Description 07/09/2024 1:08 PM GOLD LEAF ROLLER - 07/09/2024 1:25 PM GOLD LEAF ROLLER [facility] [address] [place] [address] Acute cough (Primary Dx) Discharge Disposition: Discharge to home or self care from Last 3 Months Surgical History Surgery Date Site/Laterality Comments WISDOM TOOTH EXTRACTION Medical History Medical History Date Comments Hypertension Depression Hyperlipemia Low back pain Social History Tobacco Use Types Packs/Day Years Used Date Smoking Tobacco: Former Cigarettes 0.5 17 0 08/1995 - 08/2012 Tobacco Cessation:Counseling Given: Not Answered Personal Safety Answer Date Recorded Have you ever been in or are you currently in a harmful physical or emotional relationship or is someone making you feel afraid or unsafe? Denies 07/09/2024 Sex and Gender Information Value Date Recorded Sex Assigned at Not on file Legal Sex Male 9:10 PM GOLD LEAF ROLLER Gender Identity Not on file Sexual Orientation Not on file Obstetrics History Last Filed Vital Signs Vital Sign Reading Time Taken Comments Blood Pressure 127/87 07/09/2024 1:20 PM GOLD LEAF ROLLER Pulse 68 07/09/2024 1:20 PM GOLD LEAF ROLLER Temperature 37.3 C (99.1 F) 07/09/2024 12:02 PM GOLD LEAF ROLLER Respiratory Rate 20 07/09/2024 1:20 PM GOLD LEAF ROLLER Oxygen Saturation 98% 07/09/2024 1:20 PM GOLD LEAF ROLLER Inhaled Oxygen Concentration - - Weight 114 kg (251 lb 5.2 oz) 07/09/2024 12:02 P M GOLD LEAF ROLLER Height 182.9 cm (6') 07/09/2024 12:02 PM GOLD LEAF ROLLER Body Mass Index 34.09 07/09/2024 12:02 PM GOLD LEAF ROLLER Plan of Treatment Health Maintenance Due Date Last Done Comments Depression Screening 1980 Hepatitis C Screening 1980 DTaP/Tdap/Td Vaccine (1 - Tdap) 1991 Varicella Vaccines (1 of 2 - 13+ 2-dose series) 1993 Hepatitis B Screening 1998 Regular Well Visit/Exam 18-64 1998 Influenza Vaccine (#1) 2024 HPV Vaccines Aged Out No longer eligi ble based on patient's age to complete this topic Pneumococcal vaccine <65 Aged Out No longer eligible based on patient's age to complete this topic Procedures Procedure Name Priority Date/Time Associated Diagnosis Comments XR CHEST PA LATERAL 2 VIEWS ED 07/09/2024 12:26 PM GOLD LEAF ROLLER INFLUENZA A/B, RSV, AND COVID-19 PCR Routine 07/09/2024 12:06 PM GOLD LEAF ROLLER from Last 3 Months Results * XR Chest Pa Lateral 2 Views (07/09/2024 12:26 PM GOLD LEAF ROLLER) Anatomical Region Laterality Modality Body, Chest N/A Computed Radiogr aphy 07/09/2024 12:3 7 PM GOLD LEAF ROLLER Narrative 07/09/2024 12:38 PM GOLD LEAF ROLLER EXAM DESCRIPTION: XR CHEST PA LATERAL 2 VIEWS REASON FOR STUDY: cough Cough for nine days. TECHNIQUE: 2 radiographic view(s) of the chest. COMPARISON: None FINDINGS: The cardiomediastinal silhouette appears normal. There is no airspace consolidation or pleural effusion. IMPRESSION: No acute findings THIS IS AN ELECTRONICALLY VERIFIED FINAL REPORT 07/09/2024 12:38 PM - Electronically signed by Alberto Gray M.D. JR: Report ID: [id number] Reading Location: [id number] Procedure Note Alberto Gray MD - 07/09/2024 EXAM DESCRIPTION: XR CHEST PA LATERAL 2 VIEWS REASON FOR STUDY: cough Cough for nine days. TECHNIQUE: 2 radiographic view(s) of the chest. COMPARISON: None FINDINGS: The cardiomediastinal silhouette appears normal. There is no airspace consolidation or pleural effusion. IMPRESSION: No acute findings THIS IS AN ELECTRONICALLY VERIFIED FINAL REPORT 07/09/2024 12:38 PM - Electronically signed by Alberto Gray M.D. JR: Report ID: [id number] Reading Location: [place] [address] Seamus Davenport MD IMG XR PROCEDURES Final Result * Influenza A/B, RSV, and COVID-19 PCR Nasopharyngeal (07/09/2024 12:06 PM GOLD LEAF ROLLER) [facility] COVID-19 RNA Negative Negative Comment:Testing performed by : [address], [address] Influenza A RNA Negative Negative [facility] Comment:Testing performed by : [address] [address] Influenza B RNA Negative Negative [facility] Comment:Testing performed by : [address] [address] RSV RNA Negative Negative [facility] Comment: Interpretive data: Testing performed by [facility]. This test is performed using the [employer] Xpert Xpress CoV-2/Flu/RSV plus assay. This is a multiplex, real-time reverse transcriptase PCR assay intended for the qualitative detection of nucleic acid from SARS-CoV-2, influenza A, influenza B, and respiratory syncytial virus. This assay has been cleared by the [place] Food and Drug administration. The performance characteristics have been verified by the [facility]. Results must be considered in the clinical context, and a negative result does not rule out infection. Interpretive Data last revised 2023 Testing performed by: [address] [address] Nasopharyngeal 07/09/2024 12 :06 PM GOLD LEAF ROLLER 07/09/2024 12:15 PM GOLD LEAF ROLLER Narrative NICOL - 07/09/2024 1:13 PM GOLD LEAF ROLLER Is the Patient experiencing symptoms consistent with COVID?->Yes us Seamus Davenport MD LAB MICROBIOLOGY - GENERAL ORDER YVES Final Result [facility] [address] [facility] Department [place] [address] from Last 3 Months Insurance [facility] Care Teams Internet Sales Manager Relationship Specialty Start Date End Date Jesenia Patel PA [address] [place], [place] [address] PCP - General Physician Magazine Repairer 06/07/23 Tutu Barnhart MD [address] [place], [place] [address] Consulting Physician Pain Management 05/10/24
--- OUTSIDE RECORDS SUMMARY | 2024-09-22 10:24 | XMS_ITS ---
Author Organization [facility] Address [address] [place], [place] [address] Care Team Providers Care Chip Silo Tender Name Role Phone Medical [facility], [facility] [place] [employer] Fifth Unava ilable Unavailable ENEIDA ZEE Unavailable [phone] REASON FOR VISIT The patient is here to be dispensed and fitted for custom orthotics Vital Signs Weight 240 lbs 11/14/2023 Weight-kg 108.86 kg 11/14/2023 Height 72 in 11/14/2023 Height-cm 182.88 cm 11/14/2023 BMI 32.55 kg/m2 11/14/2023 Encounters Encounter Location Date Provider Diagnosis [facility] [address] [facility] [address] [place], [place] [id number] 11/14/2023 ENEIDA ZEE Plantar fascial fibromatosis M72.2 ; Posterior tibial tendinitis, right leg M76.821 ; Posterior tibial tendinitis, left leg M76.822 ; Pain in right foot M79.671 and Left foot pain M79.672 Assessments Encounter Date Diagnosis (ICD Code) Assessment Notes Treatment Notes Treatment Clinical Notes Section Notes 11/14/2023 Plantar fascial fibromatosis (ICD-10 - M72.2) Plantar Fascitis: I discussed anti-inflammatory treatment options and various means of pronation control with the patient. I educated the patient on icing and stretching, supportive shoegear, and the use of orthotic devices. Orthotic Dispense: The orthotic devices were dispensed and fitted. It was noted that the orthotic conformed well to the patient's foot in the subtalar joint neutral position. The patient was educated on the device's use, as well as the gradual break-in period for the device. 11/14/2023 Posterior tibial tendinitis, right leg (ICD-10 - M76.821) Posterior Tibialis Tendon Dysfunction / Over Pronation: I discussed anti-inflammatory treatment options and various means of immobilization with the patient. I educated the patient on icing and stretching, supportive shoegear, and the use of orthotic devices and bracing. Shoe Recommendation: Advised patient on appropriate shoe gear for protection, healing and good foot health. 11/14/2023 Posterior tibial tendinitis, left leg (ICD-10 - M76.822) 11/14/2023 Pain in right foot (ICD-10 - M79.671) 11/14/2023 Left foot pain (ICD-10 - M79.672) Plan Of Treatment Treatment Notes Assessment Notes Plantar fascial fibromatosis Plantar Fascitis: I discussed anti-inflammatory treatment options and various means of pronation control with the patient. I educated the patient on icing and stretching, supportive shoegear, and the use of orthotic devices. Orthotic Dispense: The orthotic devices were dispensed and fitted. It was noted that the orthotic conformed well to the patient's foot in the subtalar joint neutral position. The patient was educated on the device's use, as well as the gradual break-in period for the device. Posterior tibial tendinitis, right leg Posterior Tibialis Tendon Dysfunction / Over Pronation: I discussed anti-inflammatory treatment options and various means of immobilization with the patient. I educated the patient on icing and stretching, supportive shoegear, and the use of orthotic devices and bracing. Shoe Recommendation: Advised patient on appropriate shoe gear for protection, healing and good foot health. Next Appt Details Follow Up: 4 Weeks, Reason: Orthotic check Progress Notes * Sina WALKERDOB:1979 (44 yo M)Acc No.[id number]:11/14/2023 Patient: Sina CARMONA Provider: Polina Zee DPM :1980 A ge:43 Y S ex:Male Date:11/14/2023 Address:[facility], [id number] Subjective: * Chief Complaints: * 1 . The patient is here to be dispensed and fitted for custom orthotics. 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 , MA: As. * ROS: G eneral / Constitutional: Patient denies c hills, fever, weakness, night sweats. M usculoskeletal: Patient denies c hildhood foot problems, weakness. P atient complains of h eel pain, arch pain, orthotic use. P eripheral Vascular: Patient denies u lceration of feet, cold extremities. ? S kin: Patient denies u lcerations, discoloration. ? N eurologic: Patient denies b alance difficulty, confusion, difficulty speaking, dizziness. * Medical History: Objective: * Vitals: W t:240lbs, Wt-k.86 kg, Ht: 72 in, Ht-cm: 182.88 cm, BMI:32.55Index, Body Surface Area: 2.35. * Examination: C onstitutional: Constitutional T he patient is awake, alert, well developed, well groomed and well nourished.. D ermatologic: Skin findings: S kin is warm, dry, supple with no breaks in the skin.. V ascular: Dorsalis pedis pulse: 2 /4, bilateral. Posterior tibial pulse: 2 /4, bilaterally. Capillary refill: l ess than 3 seconds. Edema: N o edema, bilateral. N eurologic: Gross sensation G ross sensation is intact to light touch..? M usculoskeletal: Muscle Strength M uscle strength is 5/5 in regards to dorsiflexion, plantarflexion, inversion, and eversion in bilateral lower extremities.. Pain on palpation m edial band of the right plantar fascia near its attachment to the calcaneus, medial band of the left plantar fascia near its attachment to the calcaneus. Foot Structure T he foot structure is noted to be, planus, bilaterally, There is calcaneus valgus noted, bilaterally. Assessment: * Assessment: 1. P lantar fascial fibromatosis - M72.2 (Primary) 2 . P osterior tibial tendinitis, right leg - M76.821 3 . P osterior tibial tendinitis, left leg - M76.822 4 . P ain in right foot - M79.671 5 . L eft foot pain - M79.672 Plan: * Treatment: 2. P osterior tibial tendinitis, right leg Notes: Posterior Tibialis Tendon Dysfunction / Over Pronation: I discussed anti-inflammatory treatment options and various means of immobilization with the patient. I educated the patient on icing and stretching, supportive shoegear, and the use of orthotic devices and bracing. Shoe Recommendation: Advised patient on appropriate shoe gear for protection, healing and good foot health. * Follow Up: 4 Weeks (Reason: Orthotic check) * Billing Information: * Visit Code: 22292 Office Visit, Est Pt., Level 3. 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 , MA: As Examination Category Sub-Category Detail Notes Category Not es Dermatologic Skin findings: Skin is warm, dr y, supple with no breaks in the skin. Neurologic Gross sensation Gross sensation is intact to light touch. Vascular Dorsalis pedis pulse: 2/4, bilateral Edema: No edema, bilateral Capillary refill: less than 3 seconds Posterior tibial pulse: 2/4, bilaterally Musculoskeletal Muscle Strength Muscle strength is 5/5 in regards to dorsiflexion, plantarflexion, inversion, and eversion in bilateral lower extremities. Pain on palpation medial band of the r ight plantar fascia near its attachment to the calcaneus, medial band of the left plantar fascia near its attachment to the calcaneus Foot Structure The foot structure i s noted to be, planus, bilaterally, There is calcaneus valgus noted, bilaterally Constitutional Constitutional The patient is a wake, alert, well developed, well groomed and well nourished.
--- OUTSIDE RECORDS SUMMARY | 2024-09-22 10:24 | XMS_ITS | Referral Summary ---
Author Organization [facility] Office [place] Address [address] [place] [address] Care Team Providers Care Chief Of Staff Doctor Name Role Phone Amanda Jesenia MAY Primary Care Provider [phone] Tutu Barnhart MD Unavailable Encounters Date Type Department Care Team Description 07/09/2024 1:08 PM PODIATRIC PHYSICIAN - 07/09/2024 1:25 PM [facility] Emergency [facility] Emergency Department [address] [place] [id number] Acute cough (Primary Dx) Discharge Disposition: Discharge to home or self care from Last 3 Months Allergies No known active allergies Medications escitalopram [...] 05/06/2024 Assessment & Plan (05/06/2024 11:20 AM PODIATRIC PHYSICIAN): Patient has no evidence of carotid stenosis bilaterally. He had both a CT angiogram and carotid duplex performed which were normal. No workup needed. Follow up PRN. MYESHA (obstructive sleep apnea) 06/07/2023 Assessment & Plan (06/07/2023 10:34 AM PODIATRIC PHYSICIAN): The patient continues to benefit from the auto titrating CPAP unit with an auto titrating range of 6-10 cm water pressure for ongoing symptoms of MYESHA. His DME supplier is [employer]. Phone # . He will follow up here annually. Social History Tobacco Use Types Packs/Day Years [...] on file Legal Sex Male 9:10 PM PODIATRIC PHYSICIAN Gender Identity Not on file Sexual Orientation Not on file Last Filed Vital Signs Vital Sign Reading Time Taken Comments Blood Pressure 127/87 07/09/2024 1:20 PM PODIATRIC PHYSICIAN Pulse 68 07/09/2024 1:20 PM PODIATRIC PHYSICIAN Temperature 37.3 C (99.1 F) 07/09/2024 12:02 PM PODIATRIC PHYSICIAN Respiratory Rate 20 07/09/2024 1:20 PM PODIATRIC PHYSICIAN Oxygen Saturation 98% 07/09/2024 1:20 PM PODIATRIC PHYSICIAN Inhaled Oxygen Concentration - - Weight 114 kg (251 lb 5.2 oz) 07/09/2024 12:02 P M PODIATRIC PHYSICIAN Height 182.9 cm (6') 07/09/2024 12:02 PM PODIATRIC PHYSICIAN Body Mass Index 34.09 07/09/2024 12:02 PM PODIATRIC PHYSICIAN Plan of Treatment Not on file Procedures Procedure Name Priority Date/Time Associated Diagnosis Comments XR CHEST PA LATERAL 2 VIEWS ED 07/09/2024 12:26 PM PODIATRIC PHYSICIAN INFLUENZA A/B, RSV, AND COVID-19 PCR Routine 07/09/2024 12:06 PM PODIATRIC PHYSICIAN from Last 3 Months Results * XR Chest Pa Lateral 2 Views (07/09/2024 12:26 PM PODIATRIC PHYSICIAN) Anatomical Region Laterality Modality Body, Chest N/A Computed Radiogr aphy 07/09/2024 12:3 7 PM PODIATRIC PHYSICIAN Narrative 07/09/2024 12:38 PM PODIATRIC PHYSICIAN EXAM DESCRIPTION: XR CHEST PA LATERAL 2 VIEWS REASON FOR STUDY: cough Cough for nine days. TECHNIQUE: 2 radiographic view(s) of the chest. COMPARISON: None FINDINGS: The cardiomediastinal silhouette appears normal. There is no airspace consolidation or pleural effusion. IMPRESSION: No acute findings THIS IS AN ELECTRONICALLY VERIFIED FINAL REPORT 07/09/2024 12:38 PM - Electronically signed by Alberto Gray M.D., JR: Report ID: [id number] Reading Location: [id number] Procedure Note Alberto Gray MD - 07/09/2024 [...] PM - Electronically signed by Alberto Gray M.D., JR: Report ID: [id number] Reading Location: [id number] us Seamus Davenport MD IMG XR PROCEDURES Final Result * Influenza A/B, RSV, and COVID-19 PCR Nasopharyngeal (07/09/2024 12:06 PM PODIATRIC PHYSICIAN) COVID-19 RNA Negative Negative Comment:Testing performed by : [address] [address] Influenza A RNA Negative Negative [facility] Comment:Testing performed by : [address] [address] Influenza B RNA Negative Negative [facility] Comment:Testing performed by : [address] [address] RSV RNA Negative Negative [facility] Comment: Interpretive data: Testing performed by [facility]. This test is performed using the [employer] Xpert Xpress CoV-2/Flu/RSV plus assay. This is a multiplex, real-time reverse transcriptase PCR assay intended for the qualitative detection of nucleic acid from SARS-CoV-2, influenza A, influenza B, and respiratory syncytial virus. This assay has been cleared by the [place] Food and Drug administration. The performance characteristics have been verified by the [facility]. Results must be considered in the clinical context, and a negative result does not rule out infection. Interpretive Data last revised 2023 Testing performed by: [address] [address] Nasopharyngeal 07/09/2024 12 :06 PM PODIATRIC PHYSICIAN 07/09/2024 12:15 PM PODIATRIC PHYSICIAN Narrative NICOL - 07/09/2024 1:13 PM PODIATRIC PHYSICIAN Is the Patient experiencing symptoms consistent with COVID?->Yes us Seamus Davenport MD LAB MICROBIOLOGY - GENERAL ORDER YVES Final Result [facility] [address] [facility] Department [place] [address] from Last 3 Months Insurance [facility] Care Teams Chief Of Staff Doctor Relationship Specialty Start Date End Date Jesenia Patel PA [address] [place] [address] PCP - General Physician Top Dyeing Machine Loader 06/07/23 Tutu Barnhart MD [address] [place] [address] Consulting Physician Pain Management 05/10/24
--- OUTSIDE RECORDS SUMMARY | 2024-09-22 10:24 | XMS_ITS | Patient Health Record ---
Author Organization [facility] Address [address] [place], [place] [id number] Care Team Providers Care Rim Technician Name Role Phone [facility] [place] [facility] Unava ilable Unavailable ENEIDA ZEE Unavailable [phone] Allergies No Known Allergies Reason For Referral Reason [facility] ([place]) Diagnosis 1 Plantar fascial fibr omatosis (M72.2) Referred Provider Specialty Podiatry Referral Priority Routine Reason [facility] (Establishe d Patient) Diagnosis 1 Plantar fascial fibr omatosis (M72.2) Referred Provider Specialty Podiatry Referral Priority Routine Reason REFERRAL ( O RTHOTICS ) ( FT INSRT REMV MLD LNGTUDNL SUPP EACH 4 UNITS ) ( 2 PAIRS ). KLL Diagnosis 1 Plantar fasciitis (M 72.2) Referred Organization [facility] Referred Provider ENEIDA ZEE Referred Address [address],[place], [id number], Referred Provider Specialty Podiatry Referral Priority Routine Immunizations Vaccine Route Administration Date Status Comme nts Influenza, high dose seasonal Unknown 10/17/2023 Refuse d Pneumococcal conjugate PCV 13 Unknown 10/17/2023 Refuse d Social History Tobacco Use: Social History Observation Description Date Details (start date - stop date) Former Smoker NA - NA Tobacco Control (Standard) Question Answer Notes Tobacco use: Former smoker Vital Signs Height-cm 182.88 cm 11/14/2023 Weight-kg 108.86 kg 11/14/2023 Height 72 in 11/14/2023 Weight 240 lbs 11/14/2023 BMI 32.55 kg/m2 11/14/2023 Encounters Encounter Location Date Provider Diagnosis [facility] [place] [address] [facility] [address] [place], [place] [id number] 10/17/2023 ENEIDA SNOOK Plantar fascial fibromatosis M72.2 ; Posterior tibial tendinitis, right leg M76.821 ; Posterior tibial tendinitis, left leg M76.822 ; Pain in right foot M79.671 and Left foot pain M79.672 [facility] [address] [facility] [address] [place], [place] [id number] 11/14/2023 ENEIDA SNOOK Plantar fascial fibromatosis M72.2 ; Posterior tibial tendinitis, right leg M76.821 ; Posterior tibial tendinitis, left leg M76.822 ; Pain in right foot M79.671 and Left foot pain M79.672 [facility] [address] [facility] [address] [place], [place] [id number] 12/24/2023 ENEIDA SNOOK Assessments Encounter Date Diagnosis (ICD Code) Assessment Notes Treatment Notes Treatment Clinical Notes Section Notes 10/17/2023 Plantar fascial fibromatosis (ICD-10 - M72.2) Plantar Fascitis: I discussed anti-inflammatory treatment options and various means of pronation control with the patient. I educated the patient on icing and stretching, supportive shoegear, and the use of orthotic devices. Orthotic Scan: The patient was scanned for functional orthotic devices. This was done in the subtalar joint neutral position in a non-weightbearing fashion. The patient will follow-up in 3-4 weeks time to be dispensed and fitted with the devices. 10/17/2023 Posterior tibial tendinitis, right leg (ICD-10 - M76.821) Posterior Tibialis Tendon Dysfunction / Over Pronation: I discussed anti-inflammatory treatment options and various means of immobilization with the patient. I educated the patient on icing and stretching, supportive shoegear, and the use of orthotic devices and bracing. Shoe Recommendation: Advised patient on appropriate shoe gear for protection, healing and good foot health. 11/14/2023 Plantar fascial fibromatosis (ICD-10 - M72.2) [...] tibial tendinitis, left leg (ICD-10 - M76.822) 10/17/2023 Posterior tibial tendinitis, left leg (ICD-10 - M76.822) 10/17/2023 Pain in right foot (ICD-10 - M79.671) 11/14/2023 Pain in right foot (ICD-10 - M79.671) 11/14/2023 Left foot pain (ICD-10 - M79.672) 10/17/2023 Left foot pain (ICD-10 - M79.672) Plan Of Treatment No Information Insurance Providers Payer Name Payer Address Payer Phone Subscriber Number Group Number Insured Name Patient Relationship to Insured Coverage Start Date Coverage End Date [facility] [address] [place] [phone] [id number] Sina Walker Self - patient is the insured Medical (General) History Medical History History ICD Code acid reflux GERD Leg/Feet cramps Sleep apnea Back Trouble hypertension
--- NOTE | 2024-09-22 11:07 | ED.GENADULT ---
HPI - General Adult General Chief complaint: Extremity Injury, Lower Stated complaint: right foot injury Time Seen by Provider: 09/22/24 10:03 History of Present Illness HPI narrative: 44-year-old male presenting to the emergency department for evaluation for injury to his right foot. Patient states his foot became entrapped in a collapsible ladder yesterday. Patient was wearing cowboy boots the time and did have some pain of the foot but was able to ambulate. Patient was concerned about the persistent pain and bruising this morning and wanted to be evaluated. Patient states he is still able to ambulate on the right foot. Related Data Allergies Allergy/AdvReac Type Severity Reaction Status Date / Time No Known Allergies Allergy Verified 09/22/24 09:09 Review of Systems Review of Systems: All systems reviewed & are unremarkable except as noted in HPI and below Exam Narrative: APPEARANCE: Well appearing, no pain, no distress, well-nourished. HEAD: normocephalic, atraumatic. EYES: PERRLA/EOMI, conjunctivae clear. NOSE: Normal no drainage EARS:TMS clear with good light reflex. THROAT: Pharynx clear, no exudate. NECK: Supple. No adenopathy, no masses. RESPIRATORY: Airway patent, respirations nonlabored. Clear to auscultation bilaterally, no rales, rhonchi, wheezing. CARDIOVASCULAR: Regular rate and rhythm without murmurs rubs or gallops. ABDOMINAL: Soft, nontender, nondistended, normal bowel sounds MUSCULOSKELETAL: Tenderness to distal right foot at the base of the 2nd toe, ecchymosis through the midfoot. No significant swelling and neurologically intact NEURO: Alert. Cranial nerves II through XII intact. Good gait. Good coordination SKIN: Warm, dry. Normal Color Course Vital Signs Vital signs: Vital Signs Temperature 98.3 F 09/22/24 09:18 Pulse Rate 85 09/22/24 09:18 Respiratory Rate 18 09/22/24 09:18 Blood Pressure 124/82 09/22/24 09:18 Pulse Oximetry 100 09/22/24 09:18 Temperature 98 F 09/22/24 09:56 Pulse Rate 75 09/22/24 11:18 Respiratory Rate 16 09/22/24 11:18 Blood Pressure 120/79 09/22/24 11:18 Pulse Oximetry 97 09/22/24 11:18 Oxygen Delivery Room Air 09/22/24 09:56 Medical Decision Making MDM Narrative Medical decision making narrative: [age] old male presents to the emergency department for evaluation for an injury to the right foot. X-ray was negative for acute fracture or dislocation. Patient declined the use of crutches and does have orthotic insoles that deep prevent some flexion of foot. Patient is already doing ice therapy elevating and using Tylenol and ibuprofen. Patient was encouraged of close follow-up with primary care physician and to return emergency department if he has any worsening symptoms. Differential Diagnosis Differential Diagnosis: Foot contusion, foot fracture, toe injury Vital Signs Vital Signs: Vital Signs Temperature 98.3 F 09/22/24 09:18 Pulse Rate 85 09/22/24 09:18 Respiratory Rate 18 09/22/24 09:18 Blood Pressure 124/82 09/22/24 09:18 Pulse Oximetry 100 09/22/24 09:18 Temperature 98 F 09/22/24 09:56 Pulse Rate 75 09/22/24 11:18 Respiratory Rate 16 09/22/24 11:18 Blood Pressure 120/79 09/22/24 11:18 Pulse Oximetry 97 09/22/24 11:18 Oxygen Delivery Room Air 09/22/24 09:56 Discharge Plan Discharge Clinical Impression: Contusion of foot Patient Disposition: Home, Self-Care Condition: Stable Instructions: Antibiotic Form, Foot Contusion (ED) Additional Instructions: Tylenol and ibuprofen for pain control. Continue ice therapy as directed. Have close follow-up with your primary care physician. If you have any worsening symptoms and please call or return to the emergency department. Patient Language: Malay Follow-up/Referrals: PHYSICIAN NOT ON STAFF,NONSTAFF [Primary Care Provider] -
[2024-09-22 11:18] VITALS: BP 120/79; PULSE 75; RESP 16; O2SAT 97
== END 2024-09-22 11:22 | disposition home or self-care (01) ==
PROVIDERS: Emergency Provider Emergency Medicine
DX: S90.31XA Contusion of right foot, initial encounter (principal); X58.XXXA Exposure to other specified factors, initial encounter
CPT/HCPCS: 73630; 99283